=== PATIENT | female | born 1960 | race African-American/Black ===

== ENCOUNTER 2016-06-11 21:47 | Emergency (ER) | payer OTHER ==
[~2016-06-11] VITALS: Ht 165.1 cm; Wt 179.2 kg
[~2016-06-11 21:47] MED LIST: ACETAZOLAMIDE250 M1 PO; ASPIRIN EC325 MG PO; CEFUROXIME250 M1 PO; COLACE100 MG PO; COUMADIN 10 MG10 MG PO; COUMADIN 2.5 M2.5 MG PO; COUMADIN7.5 M1 PO; Diamox PO; ELIQUIS2.5 M1 PO; IRON325 M1 PO; LASIX40 M1 PO; LASIX40 MG PO; LOVENOX 10100 MG/1 M SC; MOTRIN 400MG (400 MG PO; PRILOSEC 20MG C20 MG PO; PROVENTIL0.09 MG/Ac INH; ROXICODONE5 MG PO; TYLENOL TAB 32325 MG PO
[2016-06-11 22:11] VITALS: BP 105/57
[2016-06-11 22:42] LABS: ABSOLUTE BASOPHIL COUNT 0 /CUMM (0.0-0.2); ABSOLUTE EOSINOPHIL COUNT 0 /CUMM (0.0-0.7); BASOPHIL % 0.1 % (0.0-2.0); HEMATOCRIT 36.6 % (37-47); MEAN CORPUSCULAR HGB 26.4 PG (27.0-31.0); RED BLOOD CELL CT 4.09 /CUMM (4.20-5.40); WHITE BLOOD CELL COUNT 9.4 /CUMM (4.8-10.8)
[2016-06-11 22:46] LABS: ABSOLUTE MONOCYTE COUNT 0.4 /CUMM (0.10-0.60); EOSINOPHIL % 0.1 % (0-5); GRANULOCYTE % 84.5 % (42.2-75.2); MEAN CORPUSCULAR HGB CONC 29.5 G/DL (33.0-37.0); MEAN CORPUSCULAR VOLUME 89.6 FL (81.0-99.0); MEAN PLATELET VOLUME 7.1 FL (7.4-10.4); PLATELET COUNT 250 /CUMM (130-400); RBC DISTRIBUTION WIDTH 32.9 % (11.5-14.5)
[2016-06-11 22:54] LABS: ABSOLUTE GRANULOCYTE CT 7.9 /CUMM (1.4-6.5)
--- NOTE | 2016-06-11 23:10 | ED GI/GU/ABDOMINAL COMPLAINT ---
History of Present Illness General Chief Complaint: Abdominal Pain/Flank Pain Stated Complaint: CHANELLE RUQ ABD PAIN, RADIATES TO BACK Source: patient Exam Limitations: no limitations Vital Signs & Intake/Output Vital Signs & Intake/Output Vital Signs Date Time Temp Pulse Resp B/P Pulse O2 O2 Flow FiO2 Ox Delivery Rate 06/11 2306 98 Room Air 06/11 2211 97.7 99 20 105/57 98 Room Air ED Intake and Output 06/12 0000 06/11 1200 Intake Total 1000 Output Total Balance 1000 Intake, IV 1000 Patient 395 lb Weight Allergies Coded Allergies: NO KNOWN ALLERGIES (12/10/13) Reconcile Medications Acetaminophen (Tylenol Tab 325 MG) 325 MG TAB 2 TAB PO Q4P PRN mild to moderate pain Acetazolamide 250 MG TABLET 1 TAB PO Wednesday Fluid Overload Please take this medication on Wednesday, Wednesday, Wednesday. Albuterol (Proventil) 0.09 MG/Actuation ESCOBAR 2 PUFF INH Q6 PRN WHEEZING Apixaban (Eliquis) 2.5 MG TABLET 1 TAB PO BID Venous Thromboembolism Docusate Sodium (Colace) 100 MG SGL 2 CAP PO DAILY CONSTIPATION Ergocalciferol (Vitamin D2) (Vitamin D2) 50,000 UNIT CAPSULE 1 CAP PO AD SUPPLEMENT (Reported) Ferrous Sulfate 325 MG TAB 1 TAB PO BID ANEMIA Furosemide (Lasix) 40 MG TABLET 1 TAB PO SAT SUN WATER RETENTION Please take this medication on Wednesday, , Wednesday and Wednesday. Triage Note: RECEIVED 55 YO FEMALE CHANELLE FROM [facility] FOR C/O RUQ ABDOMINAL PAIN RADIATING TO BACK X ONE HOUR, WITH N/V X 2, PT IS MORBIDLY OBESE WITH HX OF BILAT LOWER EXT. DVT'S. PT REPORTS MILD PAIN AT PRESENT. Triage Nurses Notes Reviewed? yes ? N Is pt currently ? No HPI: This patient is a 55-year-old female who presented to the emergency department today from [facility] for evaluation of abdominal pain 1 hour prior to arrival. The patient reported that she was sitting when she first noticed pain in her right upper abdomen that radiates to the back. She reported that he gets up to an 8 out of 10 and has been constant, although it has been getting better. She reported that she only feels like, "a little bit, " right now. However, the patient reported that the pain feels like pressure and she is now feeling pressure in both sides of her neck. She reported that she feels that she is having some anxiety. She reported vomiting 2 and associated nausea. She denied any fevers, chills, chest pain, palpitations, numbness or tingling in her extremities, arm pain, calf pain, hemoptysis, calf swelling. (MAGALY AGUILAR PA-C) Past History Travel History Traveled to [place] past 21 day No Medical History Any Pertinent Medical History? see below for history Neurological: NONE EENT: NONE Cardiovascular: CHF Respiratory: obstructive sleep apnea Gastrointestinal: NONE Hepatic: NONE Renal: NONE Musculoskeletal: NONE Psychiatric: NONE Endocrine: NONE Blood Disorders: DVT Cancer(s): NONE History of MRSA: No History of VRE: No History of CDIFF: No Pneumonia Vaccine: 02/28/05 Surgical History Surgical History: non-contributory Psychosocial History Who do you live with Daughter Services at Home None What is your primary language Czech Tobacco Use: Never used Family History Family History, If Any: FATHER (Parkinsonism). SISTER (ovarian cancer). MOTHER (hypertension). Hx Contributory? No (MAGALY AGUILAR PA-C) Review of Systems Review of Systems Constitutional: Reports: no symptoms. EENTM: Reports: no symptoms. Respiratory: Reports: see HPI. Cardiovascular: Reports: no symptoms. GI: Reports: see HPI. Genitourinary: Reports: no symptoms. Musculoskeletal: Reports: see HPI. Skin: Reports: no symptoms. Neurological/Psychological: Reports: no symptoms. All Other Systems: Reviewed and Negative (MAGALY AGUILAR PA-C) Physical Exam Physical Exam Gastrointestinal: HYPOACTIVE BOWEL SOUNDS, OBESE, SOFT, NONDISTENDED, NO ORGANOMEGALY. TENDERNESS TO PALPATION ACROSS THE UPPER ABDOMEN. NO REBOUND OR GUARDING. POSITIVE BURKETT'S SIGN. NO MCBURNY'S POINT TENDERNESS Comments: Well-developed well-nourished person in no acute distress HEENT: Normal EENT exam, moist mucous membranes Pupils equally round and reactive to light. Neck: Supple, no lymphadenopathy. No midline tenderness Back: Normal inspection Cardiovascular: Regular rate and rhythm with no murmurs, rubs or gallops. No carotid bruits. No JVD Respiratory: Chest nontender. No respiratory distress. Breath sounds clear to auscultation bilaterally Extremity: No edema, no calf tenderness to palpation, normal and equal pulses. Neuro: Alert oriented x3, cranial nerves II through XII grossly intact. Skin: No appreciable rash on exposed skin, skin is warm and dry. Psych: Mood and affect is normal Core Measures ACS in differential dx? Yes Severe Sepsis Present: No Septic Shock Present: No (LAUREN CASTELLANO,MAGALY) Progress Differential Diagnosis: AAA, AMI, appendicitis, biliary colic, bowel obstruction , colon cancer, cholecystitis, diverticulitis, ectopic , endometritis, gastritis, hepatitis, hernia, ischemic bowel, inflamm bowel dis, intrauterine , kidney stone, pancreatitis, PID/cervicitis, PUD/GERD, perforated viscous, SBO, UTI/pyelo Plan of Care: Orders Procedure Date/time Status LACTIC ACID 06/12 0115 Active Add-on Test (ER Only) 06/11 2317 Active EKG 06/11 2317 Active Add-on Test (ER Only) 06/11 2314 Active TROPONIN LEVEL 06/11 2229 Active MAGNESIUM 06/11 2229 Active BLOOD CULTURE 06/11 2214 Active URINALYSIS 06/11 2214 Active LIPID PANEL 06/115 Active LIPASE 06/11 2214 Active LACTIC ACID 06/11 2214 Active HEPATITIS PANEL 06/11 2214 Active DIRECT BILIRUBIN 06/11 2214 Active COMPREHENSIVE METABOLIC PANEL 06/11 2214 Active CBC WITHOUT DIFFERENTIAL 06/11 2214 Complete AMYLASE 06/11 2214 Active Laboratory Tests 06/11/16 2230: Anion Gap 14, Estimated GFR > 60, BUN/Creatinine Ratio 16.3, Glucose 127 H, Lactic Acid 1.9, Calcium 8.2 L, Magnesium 1.9, Total Bilirubin 0.5, Direct Bilirubin 0.4, AST 13 L, ALT 16, Alkaline Phosphatase 71, Troponin I < 0.01, Total Protein 7.6, Albumin 3.3 L, Globulin 4.3 H, Albumin/Globulin Ratio 0.8 L, Triglycerides 70, Cholesterol 122, LDL Cholesterol, Calc 83, HDL Cholesterol 25 L, Cholesterol/HDL Ratio 5 H, Amylase < 30 L, Lipase 42, CBC w Diff NO MAN DIFF REQ, RBC 4.09 L, MCV 89.6, MCH 26.4 L, RDW 32.9 H, MPV 7.1 L, Gran % 84.5 H, Lymphocytes % 10.7 L, Monocytes % 4.6, Eosinophils % 0.1, Basophils % 0.1, Absolute Granulocytes 7.9 H, Absolute Lymphocytes 1.0 L, Absolute Monocytes 0.4, Absolute Eosinophils 0, Absolute Basophils 0, PUBS MCHC 29.5 L, Hepatitis A IgM Ab Pending, Hep Bs Antigen Pending, Hep B Core IgM Ab Conf Pending, Hepatitis C Antibody Pending Microbiology 06/11 2316 BLOOD: Blood Culture - RECD 06/11 2229 BLOOD: Blood Culture - RECD Diagnostic Imaging: Viewed by Me: CT Scan. Discussed w/RAD: CT Scan. Radiology Impression: PATIENT: REJI ALFARO PRESENT AGE: 55 PATIENT ACCOUNT NO: [id number] : 59 LOCATION: [facility] ORDERING PHYSICIAN: MAGALY AGUILAR PA-C SERVICE DATE: 06/11/16 EXAM TYPE: CAT - CT ABD & PELVIS W IV CONTRAST EXAMINATION: CT ABDOMEN AND PELVIS WITH CONTRAST CLINICAL INFORMATION: Abdominal pain with nausea and vomiting. COMPARISON: None. TECHNIQUE: Multidetector volumetric imaging was performed of the abdomen and pelvis before and after the IV administration of 95 mL of Optiray 320 intravenous contrast. Sagittal and coronal reformatted images were obtained on the technologist's workstation. DLP: 1575 mGy-cm. FINDINGS: LUNG BASES: The visualized lung bases are unremarkable. LIVER, GALLBLADDER, AND BILIARY TREE: The liver is normal in attenuation. The liver is enlarged, measuring 21 cm in CC dimension. No focal hepatic lesion or biliary ductal dilatation is present. The gallbladder is unremarkable with no evidence of radiopaque gallstones, gallbladder wall thickening, or obvious pericholecystic inflammatory changes. PANCREAS: Unremarkable. SPLEEN: Unremarkable. ADRENAL GLANDS: Unremarkable. KIDNEYS AND URETERS: The kidneys are normal in size, shape, and attenuation. No hydronephrosis, hydroureter, or calculi seen. No perinephric stranding. BLADDER: The bladder is partially distended without definite wall thickening, although the pelvic collection abuts the superior left aspect of the bladder with loss of the fat plane. GASTROINTESTINAL TRACT: Small hiatal hernia. The stomach is otherwise unremarkable. No dilated loops of bowel or evidence of obstruction. Normal appendix. There is colonic diverticulosis. There is no evidence of acute wall thickening. There is a contained collection adjacent to the sigmoid colon with internal foci of gas and fluid. This collection measures 5.6 x 4.7 x 3.8 cm. Minimal inflammatory changes noted. This constellation of findings is consistent with a contained perforation from diverticulitis. ABDOMINAL WALL: No significant hernia is appreciated. LYMPH NODES: No pathologically enlarged lymph nodes. Multiple small retroperitoneal lymph nodes are present. VASCULAR: An IVC filter is noted at the level of the renal veins. Scattered atherosclerotic calcifications. Small varices are noted within the left abdomen. PELVIC VISCERA: The uterus is unremarkable. No adnexal mass. Of note, the pelvic collection is seen in the region of the left adnexa likely abutting the left ovary. OSSEOUS STRUCTURES: No acute or suspicious osseous abnormality. Multilevel degenerative changes of the spine. Severe degenerative changes of the right hip with loss of the joint space, subchondral sclerosis and cyst formation, and osteophyte formation. IMPRESSION: Colonic diverticulosis with an adjacent fluid collection in the pelvis with internal foci of gas. While there is no significant colonic wall thickening. Slight inflammation is also seen in the region and this therefore suggests a contained perforation associated with diverticulitis. Hepatomegaly. Severe degenerative changes of the right hip. This critical result was discussed with MAGALY AGUILAR MD by telephone at 06/11/2016 11:54 PM and it was ascertained that the content and urgency of the report was understood at the time of direct communication. DICTATED BY: OVIDIO SMILEY,KURT DATE/TIME DICTATED:06/11/162347 SLAUGHTERER RELIGIOUS RITUAL:ENMA DATE/TIME TRANSCRIBED:2347 CONFIDENTIAL, DO NOT COPY WITHOUT APPROPRIATE AUTHORIZATION. < Electronically signed in Other Vendor System> SIGNED BY: OVIDIO SMILEY, KURT 06/12/16 0004 Initial ED EKG: normal axis, nonspecific ST T wave chg, sinus arrythmia, 110 bpm Comments: 06/11/2016 11:58:19 PM: [facility] called to tell me that she has a contained collection in her pelvis. She has diverticulosis with a mild diverticulitis with a contained perforation. Speculate that this happened a while ago and may be improving but is not entirely sure. 06/12/2016 12:24:15 PM: I spoke to Dr. Jj, on-call general surgeon. The surgical PA will be down to evaluate this patient [id number]. 06/12/2016 12:48:39 PM: Dr. Jj feels that this patient can be safely discharged back to the extended care facility with no antibiotics. Suspecting that this is likely an old collection that is resolving. This patient has no abnormalities to her LFTs. White blood cell count is not elevated. Gallbladder is unremarkable and CT scan. They are recommending however that this patient has an outpatient ultrasound of her gallbladder. She is stable for discharge home at this time. Discussed the plan with who is in agreement. (MAGALY AGUILAR PA-C) Departure Departure Disposition: HOME OR SELF CARE Condition: Stable Clinical Impression Primary Impression: Abdominal pain Qualifiers: Abdominal location: right upper quadrant Qualified Code: R10.11 - Right upper quadrant pain Referrals: CANDICE SMILEY,PEGGY Farley (PCP/Family) Additional Instructions: Continue to take all previously prescribed medications as directed. Please get an out patient right upper quadrant ultrasound of your gallbladder. Return for any worsening symptoms or concerns. Departure Forms: Customer Survey General Discharge Information (MAGALY AGUILAR PA-C) PA/BOAT WRAPPER Co-Sign Statement Statement: ED Attending supervision documentation- x I saw and evaluated the patient. I have also reviewed all the pertinent lab results and diagnostic results. I agree with the findings and the plan of care as documented in the PA's/BOAT WRAPPER's documentation. [] I have reviewed the ED Record and agree with the PA's/BOAT WRAPPER's documentation. [] Additions or exceptions (if any) to the PAs/BOAT WRAPPER's note and plan are summarized below: [] (JENNIFER SMILEY,SEBAS)
--- NOTE | 2016-06-12 00:04 | CT SCAN REPORT ---
EXAMINATION: CT ABDOMEN AND PELVIS WITH CONTRAST CLINICAL INFORMATION: Abdominal pain with nausea and vomiting. COMPARISON: None. TECHNIQUE: Multidetector volumetric imaging was performed of the abdomen and pelvis before and after the IV administration of 95 mL of Optiray 320 intravenous contrast. Sagittal and coronal reformatted images were obtained on the technologist's workstation. DLP: 1575 mGy-cm. FINDINGS: LUNG BASES: The visualized lung bases are unremarkable. LIVER, GALLBLADDER, AND BILIARY TREE: The liver is normal in attenuation. The liver is enlarged, measuring 21 cm in CC dimension. No focal hepatic lesion or biliary ductal dilatation is present. The gallbladder is unremarkable with no evidence of radiopaque gallstones, gallbladder wall thickening, or obvious pericholecystic inflammatory changes. PANCREAS: Unremarkable. SPLEEN: Unremarkable. ADRENAL GLANDS: Unremarkable. KIDNEYS AND URETERS: The kidneys are normal in size, shape, and attenuation. No hydronephrosis, hydroureter, or calculi seen. No perinephric stranding. BLADDER: The bladder is partially distended without definite wall thickening, although the pelvic collection abuts the superior left aspect of the bladder with loss of the fat plane. GASTROINTESTINAL TRACT: Small hiatal hernia. The stomach is otherwise unremarkable. No dilated loops of bowel or evidence of obstruction. Normal appendix. There is colonic diverticulosis. There is no evidence of acute wall thickening. There is a contained collection adjacent to the sigmoid colon with internal foci of gas and fluid. This collection measures 5.6 x 4.7 x 3.8 cm. Minimal inflammatory changes noted. This constellation of findings is consistent with a contained perforation from diverticulitis. ABDOMINAL WALL: No significant hernia is appreciated. LYMPH NODES: No pathologically enlarged lymph nodes. Multiple small retroperitoneal lymph nodes are present. VASCULAR: An IVC filter is noted at the level of the renal veins. Scattered atherosclerotic calcifications. Small varices are noted within the left abdomen. PELVIC VISCERA: The uterus is unremarkable. No adnexal mass. Of note, the pelvic collection is seen in the region of the left adnexa likely abutting the left ovary. OSSEOUS STRUCTURES: No acute or suspicious osseous abnormality. Multilevel degenerative changes of the spine. Severe degenerative changes of the right hip with loss of the joint space, subchondral sclerosis and cyst formation, and osteophyte formation. IMPRESSION: Colonic diverticulosis with an adjacent fluid collection in the pelvis with internal foci of gas. While there is no significant colonic wall thickening. Slight inflammation is also seen in the region and this therefore suggests a contained perforation associated with diverticulitis. Hepatomegaly. Severe degenerative changes of the right hip. This critical result was discussed with MAGALY AGUILAR MD by telephone at 06/11/2016 11:54 PM and it was ascertained that the content and urgency of the report was understood at the time of direct communication.
--- NOTE | 2016-06-12 01:03 | Cons- General Surgery ---
General Information and HPI Consulting Request Date of Consult: 06/12/16 Requested By: Emergency department staff Reason for Consult: Abdominal pain Source of Information: patient Exam Limitations: no limitations History of Present Illness: This is a 55-year-old female was sent to the emergency department from an extended living facility for complaints of abdominal pain with associated nausea and vomiting. The patient was seen she reports feeling fine and in her usual state of health throughout the day. Shortly after dinner she developed epigastric abdominal pain which is sharp and crampy in nature and radiating to her right upper quadrant and back with associated nausea/vomiting 2-3 episodes which appears to be what she had had for dinner. The patient denies having similar pain in the past and had no other complaints the current time. She reports having a normal bowel movement earlier this evening and denies any fever /chills, dysuria, or other complaints. Allergies/Medications Allergies: Coded Allergies: NO KNOWN ALLERGIES (12/10/13) Home Med List: Acetaminophen (Tylenol Tab 325 MG) 325 MG TAB 2 TAB PO Q4P PRN mild to moderate pain Acetazolamide 250 MG TABLET 1 TAB PO Wednesday Fluid Overload Please take this medication on Wednesday, Wednesday, Wednesday. Albuterol (Proventil) 0.09 MG/Actuation ESCOBAR 2 PUFF INH Q6 PRN WHEEZING Apixaban (Eliquis) 2.5 MG TABLET 1 TAB PO BID Venous Thromboembolism Cefuroxime Axetil (Cefuroxime) 250 MG TABLET 1 TAB PO BID Pneumonia Docusate Sodium (Colace) 100 MG SGL 2 CAP PO DAILY CONSTIPATION Ferrous Sulfate 325 MG TAB 1 TAB PO BID ANEMIA Furosemide (Lasix) 40 MG TABLET 1 TAB PO Wed SUN WATER RETENTION Please take this medication on Wednesday, , Wednesday and Wednesday. Omeprazole (Prilosec) 20 MG CAP 2 TAB PO BID GI HEALTH Past History Medical History Neurological: NONE EENT: NONE Cardiovascular: CHF Respiratory: obstructive sleep apnea Gastrointestinal: NONE Hepatic: NONE Renal: NONE Musculoskeletal: NONE Psychiatric: NONE Endocrine: NONE Blood Disorders: DVT Cancer(s): NONE Other Medical Hx: Morbid obesity Surgical History Pertinent Surgical History: non-contributory Family History Relations & Conditions If Any: FATHER (Parkinsonism). SISTER (ovarian cancer). MOTHER (hypertension). Psychosocial History Where Do You Live? Assisted Living Who Do You Live With? other assisted living residence Services at Home: full service Primary Language: Hong Konger Smoking Status: Never Smoked ETOH Use: denies use Functional Ability ADLs Independent: dressing, eating, toileting, bathing. Ambulation: cane IADLs Independent: finances, food prep, telephone, medication admin. Needs Assist: shopping, housework, transportation. Review of Systems Review of Systems Cardiovascular: Denies: chest pain, palpitations. Respiratory: Denies: cough, short of breath. GI: Denies: diarrhea, changes in stool. Genitourinary: Denies: dysuria. Exam & Diagnostic Data Vital Signs and I&O Vital Signs Date Time Temp Pulse Resp B/P Pulse O2 O2 Flow FiO2 Ox Delivery Rate 06/11 2306 98 Room Air 06/11 221 97.7 99 20 105/57 98 Room Air Intake & Output 06/12 0800 06/12 0000 06/11 1600 06/11 0800 06/11 0000 06/10 1600 Intake Total 1000 Output Total Balance 1000 Intake, IV 1000 Patient 395 lb Weight Laboratory Tests 06/110 Chemistry Sodium (137 - 145 mmol/L) 141 Potassium (3.5 - 5.1 mmol/L) 4.2 Chloride (98 - 107 mmol/L) 97 L Carbon Dioxide (22 - 30 mmol/L) 30 Anion Gap (5 - 16) 14 BUN (7 - 17 mg/dL) 13 Creatinine (0.5 - 1.0 mg/dL) 0.8 Estimated GFR (>60 ml/min) > 60 BUN/Creatinine Ratio (7 - 25 %) 16.3 Glucose (65 - 99 mg/dL) 127 H Lactic Acid (0.7 - 2.1 mmol/L) 1.9 Calcium (8.4 - 10.2 mg/dL) 8.2 L Magnesium (1.6 - 2.3 mg/dL) 1.9 Total Bilirubin (0.2 - 1.3 mg/dL) 0.5 Direct Bilirubin (< 0.4 mg/dL) 0.4 AST (14 - 36 U/L) 13 L ALT (9 - 52 U/L) 16 Alkaline Phosphatase (<127 U/L) 71 Troponin I (< 0.11 ng/ml) < 0.01 Total Protein (6.3 - 8.2 g/dL) 7.6 Albumin (3.5 - 5.0 g/dL) 3.3 L Globulin (1.9 - 4.2 gm/dL) 4.3 H Albumin/Globulin Ratio (1.1 - 2.2 %) 0.8 L Triglycerides (<150 mg/dL) 70 Cholesterol (<200 MG/DL) 122 LDL Cholesterol, Calc (65 - 129 mg/dL) 83 HDL Cholesterol (40 - 60 mg/dL) 25 L Cholesterol/HDL Ratio (0.00 - 4.23 %) 5 H Amylase (30 - 110 U/L) < 30 L Lipase (23 - 300 U/L) 42 Hematology CBC w Diff NO MAN DIFF REQ WBC (4.8 - 10.8 /CUMM) 9.4 RBC (4.20 - 5.40 /CUMM) 4.09 L Hgb (12.0 - 16.0 G/DL) 10.8 L Hct (37 - 47 %) 36.6 L MCV (81.0 - 99.0 FL) 89.6 MCH (27.0 - 31.0 PG) 26.4 L RDW (11.5 - 14.5 %) 32.9 H Plt Count (130 - 400 /CUMM) 250 MPV (7.4 - 10.4 FL) 7.1 L Gran % (42.2 - 75.2 %) 84.5 H Lymphocytes % (20.5 - 51.1 %) 10.7 L Monocytes % (1.7 - 9.3 %) 4.6 Eosinophils % (0 - 5 %) 0.1 Basophils % (0.0 - 2.0 %) 0.1 Absolute Granulocytes (1.4 - 6.5 /CUMM) 7.9 H Absolute Lymphocytes (1.2 - 3.4 /CUMM) 1.0 L Absolute Monocytes (0.10 - 0.60 /CUMM) 0.4 Absolute Eosinophils (0.0 - 0.7 /CUMM) 0 Absolute Basophils (0.0 - 0.2 /CUMM) 0 PUBS MCHC (33.0 - 37.0 G/DL) 29.5 L Serology Hepatitis A IgM Ab (NONREACTIVE) Pending Hep Bs Antigen (NONREACTIVE) Pending Hep B Core IgM Ab Conf (NONREACTIVE) Pending Hepatitis C Antibody (NONREACTIVE) Pending CAT scan of the abdomen pelvis read as small focus of air with minimal inflammatory changes around the sigmoid colon suggestive of contained perforated diverticulitis Physical Exam: Gen.: Alert in obvious distress Skin: Warm and dry HEENT: Pupils are equal round reactive to light and accommodation neck was supple with no lymphadenopathy head was atraumatic and normocephalic Chest: Nontender with equal expansion Cardiac: S1-S2 regular Pulmonary: Bilateral breath sounds were equal and decreased at bases Abdomen: Soft, obese, mild right upper quadrant and epigastric tenderness without rebound or guarding, sounds positive. No masses or hernias were appreciated Extremities: Bilateral looks O's are warm without calf tenderness there was trace pitting edema. Assessment/Plan Assessment/Plan Assessments: 55-year-old female with a few hour history of abdominal pain and exam that is more suggestive of biliary colic. CAT scan abdomen and pelvis was read as a contained perforated diverticulitis with no significant inflammation. The patient's LFTs and white count were normal her exam was not consistent with diverticulitis. The case is discussed with Nicko Jj MD. Recommendations: There is no acute surgical via the current time the patient should be set up with outpatient ultrasounds to rule out biliary disease. After the ultrasound patient to follow-up in the office as needed thank you for consultation. Problem List: 1. Abdominal pain Consult Acknowledgment - Thank you for your consult request.
[2016-06-12] MEDS ORDERED: VITAMIN D250000 UNIT PO (14:29)
== END 2016-06-12 02:10 ==
LOC: ERH 21:47
PROVIDERS: Physician Assistant
DX: R10.11 Right upper quadrant pain (principal); R11.2 Nausea with vomiting, unspecified
CPT/HCPCS: 74177; 87040; 93005; 93010; 96374; J2405

== ENCOUNTER 2016-06-12 14:08 | Inpatient (IN) | payer OTHER ==
[~2016-06-12] VITALS: Ht 167.6 cm; Wt 178.7 kg
[2016-06-12] MEDS ORDERED: VITAMIN D250000 UNIT PO (14:29)
[2016-06-12 15:04] LABS: ABSOLUTE BASOPHIL COUNT 0 /CUMM (0.0-0.2); ABSOLUTE EOSINOPHIL COUNT 0 /CUMM (0.0-0.7); ABSOLUTE LYMPH COUNT 1.3 /CUMM (1.2-3.4); MEAN CORPUSCULAR HGB CONC 29.2 G/DL (33.0-37.0)
[2016-06-12 15:06] LABS: ABSOLUTE GRANULOCYTE CT 5.8 /CUMM (1.4-6.5); ABSOLUTE MONOCYTE COUNT 0.4 /CUMM (0.10-0.60); BASOPHIL % 0.2 % (0.0-2.0); EOSINOPHIL % 0.1 % (0-5); GRANULOCYTE % 77.6 % (42.2-75.2); MEAN CORPUSCULAR HGB 26.5 PG (27.0-31.0); MEAN CORPUSCULAR VOLUME 90.9 FL (81.0-99.0); MEAN PLATELET VOLUME 7.5 FL (7.4-10.4); PLATELET COUNT 230 /CUMM (130-400); RBC DISTRIBUTION WIDTH 33.6 % (11.5-14.5); WHITE BLOOD CELL COUNT 7.5 /CUMM (4.8-10.8)
--- NOTE | 2016-06-12 15:08 | ED GI/GU/ABDOMINAL COMPLAINT ---
History of Present Illness General Chief Complaint: Abdominal Pain/Flank Pain Stated Complaint: BIBA FOR ABD. PAIN,+CT SCAN FOR PERFORATION Source: patient, old records, EMS Exam Limitations: no limitations Vital Signs & Intake/Output Vital Signs & Intake/Output Vital Signs Date Time Temp Pulse Resp B/P Pulse O2 O2 Flow FiO2 Ox Delivery Rate 06/12 2046 97.5 78 18 107/59 97 Nasal 3.0L Cannula 06/12 1755 97.0 82 18 109/64 96 Nasal 3.0L Cannula 06/12 1511 94 Nasal 3.0L Cannula 06/12 1425 97.4 86 18 102/54 94 Nasal 3.0L Cannula ED Intake and Output 06/13 0000 06/12 1200 Intake Total Output Total Balance Patient 325 lb Weight Allergies Coded Allergies: NO KNOWN ALLERGIES (12/10/13) Reconcile Medications Acetaminophen (Tylenol Tab 325 MG) 325 MG TAB 2 TAB PO Q4P PRN mild to moderate pain Acetazolamide 250 MG TABLET 1 TAB PO Wednesday Fluid Overload Please take this medication on Wednesday, Wednesday, Wednesday. Albuterol (Proventil) 0.09 MG/Actuation ESCOBAR 2 PUFF INH Q6 PRN WHEEZING Apixaban (Eliquis) 2.5 MG TABLET 1 TAB PO BID Venous Thromboembolism Docusate Sodium (Colace) 100 MG SGL 2 CAP PO DAILY CONSTIPATION Ergocalciferol (Vitamin D2) (Vitamin D2) 50,000 UNIT CAPSULE 1 CAP PO AD SUPPLEMENT (Reported) Ferrous Sulfate 325 MG TAB 1 TAB PO BID ANEMIA Furosemide (Lasix) 40 MG TABLET 1 TAB PO Wed SUN WATER RETENTION Please take this medication on Wednesday, , Wednesday and Wednesday. Triage Note: PT BIBA FROM REHAB FACILITY. PT WAS D/C'ED FROM HERE EARLIER TODAY, WITH NOTHING FOUND TO BE WRONG. PT STATES SHE WENT BACK TO FACILITY, WAS DC'ED ON CLEAR LIQUIDS, DENIED BREAKFAST BUT DRANK SOME ORANGE JUICE THEN PROCEEDED TO VOMIT AND FACILITY CALLED AMBULANCE. PT DENIES ANY PAIN, DOES NOT FEEL NAUSEOUS AT THIS TIME. PT WEARED 2L NC AT HOME, PT SATTING 88% ON 2L, INCREASED TO 94 ON 3L. PT C/O OF SLIGHT SHORTNESS OF BREATH, LUNG SOUNDS ARE CLEAR. AFEBRILE, AAOX3. Triage Nurses Notes Reviewed? yes ? N Is pt currently ? No Onset: Abrupt Duration: day(s):, constant, continues in ED Timing: recent history Quality/Severity: moderate, sharpness, severe Location: right lower quadrant Radiation: no radiation Activities at Onset: none Prior Abdominal Problems: none No Modifying Factors: none HPI: 55-year-old female comes into emergency room with complaints of abdominal pain. Patient was seen yesterday. Patient was sent back home. Denies any fever chills vomiting. Sharp pain. Intermittent. Pain is located in the right side of the abdomen. Denies any other associated symptoms. Denies any changes in bowel movement. (MATEUS PALOMARES) Past History Travel History Traveled to [place] past 21 day No Medical History Any Pertinent Medical History? see below for history Neurological: NONE EENT: NONE Cardiovascular: CHF Respiratory: obstructive sleep apnea Gastrointestinal: NONE Hepatic: NONE Renal: NONE Musculoskeletal: MORBIDLY OBESE Psychiatric: NONE Endocrine: NONE Blood Disorders: DVT Cancer(s): NONE Other Medical Hx: Morbid obesity History of MRSA: No History of VRE: No History of CDIFF: No Pneumonia Vaccine: 02/28/05 Surgical History Surgical History: non-contributory Psychosocial History Who do you live with Daughter Services at Home full service What is your primary language Guatemalan Tobacco Use: Current Not Daily Family History Family History, If Any: FATHER (Parkinsonism). SISTER (ovarian cancer). MOTHER (hypertension). Hx Contributory? No (MATEUS PALOMARES) Review of Systems Review of Systems Constitutional: Reports: no symptoms. EENTM: Reports: no symptoms. Respiratory: Reports: no symptoms. Cardiovascular: Reports: no symptoms. GI: Reports: see HPI. Genitourinary: Reports: no symptoms. Musculoskeletal: Reports: no symptoms. Skin: Reports: no symptoms. Neurological/Psychological: Reports: no symptoms. Hematologic/Endocrine: Reports: no symptoms. Immunologic/Allergic: Reports: no symptoms. All Other Systems: Reviewed and Negative (MATEUS PALOMARES) Physical Exam Physical Exam General Appearance: well developed/nourished, no apparent distress, alert, awake Head: atraumatic, normal appearance Eyes: Bilateral: normal appearance. Ears, Nose, Throat, Mouth: hearing grossly normal, moist mucous membrane Neck: normal inspection Respiratory: normal breath sounds, no respiratory distress Cardiovascular: regular rate/rhythm Gastrointestinal: soft, tenderness (MILD RIGHT SIDE OF ABDOMEN) Back: normal inspection Extremities: normal range of motion Neurologic/Psych: awake, alert, oriented x 3, normal gait, normal mood/affect Skin: intact, normal color Core Measures ACS in differential dx? No Severe Sepsis Present: No Septic Shock Present: No (MATEUS PALOMARES) Progress Differential Diagnosis: appendicitis, biliary colic, bowel obstruction Plan of Care: Orders Procedure Date/time Status Heart Healthy Diet 06/13 B Active PT Evaluate & Treat 06/13 0600 Active MAGNESIUM 06/13 0600 Active BASIC ELECTROLYTES PLUS BUN&CR 06/13 0600 Active Patient Data 06/13 0053 Active POTASSIUM-PLASMA 06/13 0000 Active Lab Add-on Test 06/13 UNK Active URINE LYTES, SPOT 06/12 2337 Active URINALYSIS 06/12 2337 Active Lab Misc 06/12 2329 Active Saline Lock 06/12 2324 Active Pathway - chart 06/12 2324 Active House Staff 06/12 2324 Active Patient Data 06/12 2318 Active EKG 06/12 2310 Active Saline Lock 06/12 2259 Active Misc Message 06/12 2259 Active ED Holding Orders 06/12 2259 Active Vital Signs 06/12 2259 Active Code Status 06/12 2259 Active Admit to inpatient 06/12 2258 Active LIPASE 06/12 1522 Active AMYLASE 06/12 1522 Active Intake & Output 06/12 1513 Active PARTIAL THROMBOPLASTIN TIME 06/12 1416 Complete PROTHROMBIN TIME 06/12 1416 Complete LACTIC ACID 06/12 1416 Active COMPREHENSIVE METABOLIC PANEL 06/12 1416 Active CBC WITHOUT DIFFERENTIAL 06/12 1416 Complete TRC EVALUATION (GEN) 06/12 UNK Active Nursing Misc 06/12 UNK Active Current Medications Sig/Arvind Start time Last Medication Dose Stop Time Status Admin Polyethylene Glycol 17 GM AT BEDTIME 06/13 2200 AC (Miralax) Senna/Docusate Sodium 1 TAB AT BEDTIME 06/13 2200 AC (Senokot S) Apixaban 2.5 MG BID 06/13 1000 AC (Eliquis) Albuterol Sulfate 3 ML Q6P PRN 06/12 2345 AC (Proventil) Acetaminophen 650 MG Q6P PRN 06/12 2330 AC (Tylenol) Acetaminophen/ 1 TAB Q6P PRN 06/12 2330 AC Hydrocodone Bitart (Vicodin) Diphenhydramine HCl 25 MG Q6P PRN 06/12 2330 AC (Benadryl) Hydromorphone HCl 0.5 MG Q4P PRN 06/12 2330 AC (Dilaudid) Laboratory Tests 06/12/16 1716: Lactic Acid Cancelled 06/12/16 1522: Anion Gap 11, Estimated GFR 36 L, BUN/Creatinine Ratio 12.0, Glucose 102 H, Lactic Acid 1.0, Calcium 8.4, Total Bilirubin 0.6, AST 27, ALT 35, Alkaline Phosphatase 77, Total Protein 7.8, Albumin 3.5, Globulin 4.3 H, Albumin/ Globulin Ratio 0.8 L, Amylase Pending, Lipase Pending, PT 15.4 H, INR 1.47 H, APTT 32 06/12/16 1457: CBC w Diff MAN DIFF ORDERED, RBC 4.30, MCV 90.9, MCH 26.5 L, RDW 33.6 H, MPV 7.5, Gran % 77.6 H, Lymphocytes % 17.4 L, Monocytes % 4.7, Eosinophils % 0.1, Basophils % 0.2, Absolute Granulocytes 5.8, Segmented Neutrophils 67, Absolute Lymphocytes 1.3, Lymphocytes 19 L, Monocytes 12 H, Absolute Monocytes 0.4, Eosinophils 1, Absolute Eosinophils 0, Absolute Basophils 0, Myelocytes 1 H, Nucleated RBCs 5 H, Platelet Estimate ADEQUATE, Polychromasia 2+, Hypochromic- Microcytic 2+, Poikilocytosis 2+, Anisocytosis 2+, Microcytic Cells 1+, Macrocytic Cells 1+, PUBS MCHC 29.2 L Diagnostic Imaging: Viewed by Me: Ultrasound. Discussed w/RAD: Ultrasound. Radiology Impression: SERVICE DATE: 06/12/16-1605 EXAM TYPE: US - US-LIMITED ABDOMEN EXAMINATION: US ABDOMEN LIMITED CLINICAL INFORMATION: Right upper quadrant pain. COMPARISON: CT of abdomen-pelvis, 06/11/2015 TECHNIQUE: Real-time imaging of the right upper quadrant abdominal viscera. FINDINGS: PANCREAS: The majority of the pancreatic body and tail are obscured by bowel gas. The visualized portions of the pancreas have normal echotexture and there is no pancreatic ductal dilatation. LIVER: There is hepatomegaly with right hepatic lobe measuring 22 cm in craniocaudal dimension. The liver parenchymal echotexture is normal. No evidence of focal hepatic lesion or intrahepatic bile duct dilatation. GALLBLADDER: Gallbladder is physiologically distended and contains multiple small calculi. The gallbladder wall is thickened (measures up to 7-8 mm thick), and this is most conspicuous at its interface with the liver. Trace amount of pericholecystic fluid is seen. There is no Mejia's sign. COMMON BILE DUCT: Normal in caliber measuring 0.5 cm in diameter. RIGHT KIDNEY: Normal. No hydronephrosis. No renal calculi or focal parenchymal lesions. The kidney measures 10.9 cm in maximum dimension. FREE FLUID: No free fluid within Morison' s pouch. OTHER: Patient has an obese body habitus. IMPRESSION: 1. Cholelithiasis , gallbladder wall edema and trace pericholecystic fluid. These findings suggest possibility of acute cholecystitis. However, there is no Mejia's sign to confirm presence of acute cholecystitis. 2. Hepatomegaly in this obese patient. DICTATED BY: MARGARETTE IBANEZ MD DATE/TIME DICTATED:06/12/161712 DIRECTOR LABOR STANDARDS:ENMA DATE/TIME TRANSCRIBED:06/12/161712 CONFIDENTIAL, DO NOT COPY WITHOUT APPROPRIATE AUTHORIZATION. Initial ED EKG: none Comments: 06/12/2016 6:32:27 PM Waiting on surgery to call back. 06/12/2016 9:50:56 PM Surgery is currently in the OR. Waiting for them to leave the OR. They will evaluate the patient afterwards. 06/12/[address] Mann. Patient is pending a surgery evaluation. Patient has ultrasound consistent with cholecystitis. Patient is nontoxic- appearing otherwise. No acute abdomen on exam. (JULITA MERCADO,MATEUS) Departure Departure Disposition: STILL A PATIENT Condition: Stable Clinical Impression Primary Impression: Acute kidney injury Secondary Impressions: Cholecystitis, Hyperkalemia Referrals: CANDICE SMILEY,PEGGY Farley (PCP/Family) Departure Forms: Customer Survey General Discharge Information Admission Note Spoke With: SOCORRO DOVER MD Documentation of Exam: Documentation of any treatments & extenuating circumstances including Concerns Regarding Discharge (functional status, medication knowledge or non-compliance, living conditions, etc.) that warrant an admission rather than observation: Patient will require gentle hydration. Potassium correction. Surgical consultation. Serial abdominal exams. Repeat blood work. Consider other diagnostic imaging such as HIDA scan. Patient may require surgery of her symptoms worsen. Patient was seen by Dr. bruce. Patient will need medical clearance as well. (JULITA MERCADO,MATEUS) PA/RIGGER Co-Sign Statement Statement: ED Attending supervision documentation- [] I saw and evaluated the patient. I have also reviewed all the pertinent lab results and diagnostic results. I agree with the findings and the plan of care as documented in the PA's/RIGGER's documentation. [x] I have reviewed the ED Record and agree with the PA's/RIGGER's documentation. [] Additions or exceptions (if any) to the PAs/RIGGER's note and plan are summarized below: [] (DANII SMILEY,JANELLE Lucero)
[2016-06-12 15:40] LABS: PT 15.4 SEC (9.4-12.5); PTT 32 SEC (25-37)
--- NOTE | 2016-06-12 17:25 | ULTRASOUND REPORT ---
EXAMINATION: US ABDOMEN LIMITED CLINICAL INFORMATION: Right upper quadrant pain. COMPARISON: CT of abdomen-pelvis, 06/11/2015 TECHNIQUE: Real-time imaging of the right upper quadrant abdominal viscera. FINDINGS: PANCREAS: The majority of the pancreatic body and tail are obscured by bowel gas. The visualized portions of the pancreas have normal echotexture and there is no pancreatic ductal dilatation. LIVER: There is hepatomegaly with right hepatic lobe measuring 22 cm in craniocaudal dimension. The liver parenchymal echotexture is normal. No evidence of focal hepatic lesion or intrahepatic bile duct dilatation. GALLBLADDER: Gallbladder is physiologically distended and contains multiple small calculi. The gallbladder wall is thickened (measures up to 7-8 mm thick), and this is most conspicuous at its interface with the liver. Trace amount of pericholecystic fluid is seen. There is no Mejia's sign. COMMON BILE DUCT: Normal in caliber measuring 0.5 cm in diameter. RIGHT KIDNEY: Normal. No hydronephrosis. No renal calculi or focal parenchymal lesions. The kidney measures 10.9 cm in maximum dimension. FREE FLUID: No free fluid within Morison's pouch. OTHER: Patient has an obese body habitus. IMPRESSION: 1. Cholelithiasis, gallbladder wall edema and trace pericholecystic fluid. These findings suggest possibility of acute cholecystitis. However, there is no Mejia's sign to confirm presence of acute cholecystitis. 2. Hepatomegaly in this obese patient.
--- NOTE | 2016-06-13 00:02 | History & Physical ---
JOSE DAVID SMILEY,VALENC[place] 06/13/16 0001: General Information and HPI MD Statement: I have seen and personally examined REJI ALFARO and documented this H&P. The patient is a 55 year old F who presented with a patient stated chief complaint of abdominal pain. Source of Information: patient Exam Limitations: no limitations History of Present Illness: A 55-year-old female with a past medical history of CHF, XIANG on nocturnal CPAP, DVT is post IVC placement, and a recent admission in April for exacerbation of CHF and community acquired pneumonia presents from [facility] with chief complaint of abdominal pain. Pt states that her abdominal pain has an onset of months ago and is progressively worsening. Patient describes abdominal pain as cramping like located in the epigastric area and radiating towards her right upper quadrant area and her back, rated 5/10 and not affected by food intake. Patient does endorse an episode of nausea and vomiting today which she describes as greenish substance with no blood in it. Of note, patient was seen yesterday for the same complaint of abdominal pain and episode of vomiting. CT obtained was suggestive of some colonic perforation with diverticulitis, she was seen by surgery and cleared to go back to [facility] with instructions to be on clear liquids and follow-up evaluation at an outpatient basis. She denies any fever, chills, recent infection, diarrhea, constipation, melena, hematemesis, chest pain, palpitation, or dysuria, Allergies/Medications Allergies: Coded Allergies: NO KNOWN ALLERGIES (12/10/13) Home Med list Acetaminophen (Tylenol Tab 325 MG) 325 MG TAB 2 TAB PO Q4P PRN mild to moderate pain Acetazolamide 250 MG TABLET 1 TAB PO Wednesday Fluid Overload Please take this medication on Wednesday, Wednesday, Wednesday. Albuterol (Proventil) 0.09 MG/Actuation ESCOBAR 2 PUFF INH Q6 PRN WHEEZING Apixaban (Eliquis) 2.5 MG TABLET 1 TAB PO BID Venous Thromboembolism Docusate Sodium (Colace) 100 MG SGL 2 CAP PO DAILY CONSTIPATION Ergocalciferol (Vitamin D2) (Vitamin D2) 50,000 UNIT CAPSULE 1 CAP PO AD SUPPLEMENT (Reported) Ferrous Sulfate 325 MG TAB 1 TAB PO BID ANEMIA Furosemide (Lasix) 40 MG TABLET 1 TAB PO Wed SUN WATER RETENTION Please take this medication on Wednesday, , Wednesday and Wednesday. Past History Travel History Traveled to [place] past 21 day No Medical History Neurological: NONE EENT: NONE Cardiovascular: CHF Respiratory: obstructive sleep apnea Gastrointestinal: NONE Hepatic: NONE Renal: NONE Musculoskeletal: MORBIDLY OBESE Psychiatric: NONE Endocrine: NONE Blood Disorders: DVT Cancer(s): NONE Other Medical Hx: Morbid obesity History of MRSA: No History of VRE: No History of CDIFF: No Surgical History Surgical History: non-contributory Past Family/Social History Family History Relations & Conditions if any FATHER (Parkinsonism). SISTER (ovarian cancer). MOTHER (hypertension). Psychosocial History Who Do You Live With? other assisted living residence Services at Home: full service Primary Language: Wallisian Functional Ability ADLs Independent: dressing, eating, toileting, bathing. Ambulation: cane IADLs Independent: finances, food prep, telephone, medication admin. Needs Assist: shopping, housework, transportation. Review of Systems Review of Systems Constitutional: Denies: chills, diaphoresis, fever. EENTM: Denies: double vision, visual changes, eye pain, eye drainage. Cardiovascular: Denies: chest pain, edema, orthopena, palpitations. Respiratory: Denies: cough, hemoptysis, orthopnea, short of breath. GI: Denies: bloating, constipation, diarrhea, distention, bowel incontinence. Genitourinary: Denies: dysuria, frequency, hematuria, hesitation. Musculoskeletal: Denies: back pain, gout, joint pain. Skin: Denies: change in skin color, change in hair/nails, dryness, erythema. Neurological/Psychological: Denies: cognitive dysfunction, confusion, depressed. Hematologic/Endocrine: Reports: no symptoms. Denies: bruising, bleeding. Immunologic/Allergic: Reports: no symptoms. Denies: splenectomy. Exam & Diagnostic Data Last 24 Hrs of Vital Signs/I&O Vital Signs Date Time Temp Pulse Resp B/P Pulse O2 O2 Flow FiO2 Ox Delivery Rate 06/12 2046 97.5 78 18 107/59 97 Nasal 3.0L Cannula 06/12 1755 97.0 82 18 109/64 96 Nasal 3.0L Cannula 06/12 1511 94 Nasal 3.0L Cannula 06/12 1425 97.4 86 18 102/54 94 Nasal 3.0L Cannula Intake & Output 06/13 0800 06/13 0000 06/12 1600 Intake Total Output Total Balance Patient 147.418 kg Weight Physical Exam General Appearance Alert, Oriented X3, Cooperative, morbidly obese Skin No Significant Lesion HEENT Atraumatic, PERRLA, EOMI, Mucous Membr. moist/pink Neck Supple, No JVD Lymphatic Cervical nl Cardiovascular Regular Rate, Normal S1, Normal S2, No Murmurs Lungs Clear to Auscultation, Normal Air Movement Abdomen Normal Bowel Sounds, distended abdomen, hepatomegaly Neurological Normal Speech, Strength at 5/5 X4 Ext, Normal Tone, Sensation Intact, Cranial Nerves 3-12 NL Extremities No Clubbing, No Cyanosis, No Edema Vascular Normal Pulses, Pulses Symmetrical Last 24 Hrs of Labs/Ralph: Laboratory Tests 06/12/16 1716: Lactic Acid Cancelled 06/12/16 1522: Anion Gap 11, Estimated GFR 36 L, BUN/Creatinine Ratio 12.0, Glucose 102 H, Lactic Acid 1.0, Calcium 8.4, Total Bilirubin 0.6, AST 27, ALT 35, Alkaline Phosphatase 77, Total Protein 7.8, Albumin 3.5, Globulin 4.3 H, Albumin/ Globulin Ratio 0.8 L, Amylase < 30 L, Lipase 43, PT 15.4 H, INR 1.47 H, APTT 32 06/12/16 1457: CBC w Diff MAN DIFF ORDERED, RBC 4.30, MCV 90.9, MCH 26.5 L, RDW 33.6 H, MPV 7.5, Gran % 77.6 H, Lymphocytes % 17.4 L, Monocytes % 4.7, Eosinophils % 0.1, Basophils % 0.2, Absolute Granulocytes 5.8, Segmented Neutrophils 67, Absolute Lymphocytes 1.3, Lymphocytes 19 L, Monocytes 12 H, Absolute Monocytes 0.4, Eosinophils 1, Absolute Eosinophils 0, Absolute Basophils 0, Myelocytes 1 H, Nucleated RBCs 5 H, Platelet Estimate ADEQUATE, Polychromasia 2+, Hypochromic- Microcytic 2+, Poikilocytosis 2+, Anisocytosis 2+, Microcytic Cells 1+, Macrocytic Cells 1+, PUBS MCHC 29.2 L Microbiology 06/13 515 BLOOD: Blood Culture - COLB 06/13 515 BLOOD: Blood Culture - COLB Diagnostic Data Other Results SERVICE DATE: 06/12/16-1604 EXAM TYPE: US - US-LIMITED ABDOMEN EXAMINATION: US ABDOMEN LIMITED CLINICAL INFORMATION: Right upper quadrant pain. COMPARISON: CT of abdomen-pelvis, 06/11/2015 TECHNIQUE: Real-time imaging of the right upper quadrant abdominal viscera. FINDINGS: PANCREAS: The majority of the pancreatic body and tail are obscured by bowel gas. The visualized portions of the pancreas have normal echotexture and there is no pancreatic ductal dilatation. LIVER: There is hepatomegaly with right hepatic lobe measuring 22 cm in craniocaudal dimension. The liver parenchymal echotexture is normal. No evidence of focal hepatic lesion or intrahepatic bile duct dilatation. GALLBLADDER: Gallbladder is physiologically distended and contains multiple small calculi. The gallbladder wall is thickened (measures up to 7-8 mm thick), and this is most conspicuous at its interface with the liver. Trace amount of pericholecystic fluid is seen. There is no Mejia's sign. COMMON BILE DUCT: Normal in caliber measuring 0.5 cm in diameter. RIGHT KIDNEY: Normal. No hydronephrosis. No renal calculi or focal parenchymal lesions. The kidney measures 10.9 cm in maximum dimension. FREE FLUID: No free fluid within Morison's pouch. OTHER: Patient has an obese body habitus. IMPRESSION: 1. Cholelithiasis, gallbladder wall edema and trace pericholecystic fluid. These findings suggest possibility of acute cholecystitis. However, there is no Mejia's sign to confirm presence of acute cholecystitis. 2. Hepatomegaly in this obese patient. DICTATED BY: MARGARETTE IBANEZ MD Assessment/Plan Assessment: This is a 55-year-old female with a history of atrial fibrillation, CHF, XIANG, DVT, presents with complains of right upper quadrant abdominal pain radiating to the back and is found to have radiological findings suggestive of cholecystitis. Her labs also remarkable for hyperkalemia with no EKG changes. Impression * Abdominal pain. Right upper quadrant pain radiating to the back is suggestive of possible gall bladder etiology, However, ultrasound is negative for the Mejia's sign which is a test with about 95% sensitive. Could this be gastroenteritis? * Limited colonic perforation/diverticulitis CT findings? No leukocytosis, afebrile. But patient has abdominal pain. patton of ABX for now? * HEMA * Hyperkalemia. Possibly renal. Plan * Admit to general medicine, s/p 10 units of insulin with 50% dextrose with normalized potassium * Will trend BEP * Will trend amylase/lipase * Zofran every 4-6 as needed for nausea * Will obtain surgical consult to assess for possible acute cholecystitis * Will continue apixaban * will consider PT eval As Ranked By This Provider Problem List: 1. Abdominal pain 2. Hyperkalemia Core Measures/Miscellaneous Acute Coronary Syndrome ACS Diagnosis: No Cerebrovascular Accident CVA/TIA Diagnosis: No Congestive Heart Failure CHF Diagnosis: No Venous Thromboembolism VTE Risk Factors: Age > 40 VTE Prophylaxis Ordered Inpt: Pharm- Eliquis No Mech VTE prophylaxis d/t: No contraindications No VTE Pharm Prophylaxis d/t: No contraindications VTE Diagnosis: No VTE Type: NONE VTE Confirmed by (Test): NONE Severe Sepsis Severe Sepsis Present: No Septic Shock Septic Shock Present: No Miscellaneous Documentation Attending Case Discussed With: SOCORRO DOVER MD Primary Care Physician: PEGGY HARVEY MD Patient sees these Specialists none Level of Patient Care: General Medicine EMMA SMILEY,KUNAL 06/13/16 0050: Resident Review Statement Resident Statement: examined this patient, discussed with paid intern, agreed with paid intern, discussed with family, reviewed EMR data (avail), discussed with nursing , discussed with case mgmt, reviewed images, amended to note Other Findings: Concepcion is a 55-year-old woman with medical history of congestive heart failure morbid obesity obstructive sleep apnea DVT and pulmonary embolus with IVC filter on anticoagulation pulmonary hypertension and choledocholithiasis who presents with nausea weakness, found to have acute kidney injury. She was seen in the ER for similar symptoms yesterday and received a contrast load during a CAT scan of the abdomen pelvis. She had abdominal ultrasound that demonstrates cholelithiasis and gallbladder wall edema and trace pericholecystic fluid is findings there is possibility of acute cholecystitis however the Mejia sign was negative and cannot confirm the presence of acute cholecystitis. She had a surgical evaluation yesterday, at which time they do not believe that she had acute inflammation of the gallbladder per surgical and intervention. In the ER, she received 1 dose of SPS and nothing else. Presently her vital signs are stable. Physical examination above. Labs notable for normocytic anemia with hemoglobin of 11.4, nucleated RBCs noted. Potassium is 5.8, and creatinine is 1.5. All other tests are unremarkable. CT Abd/Pelvis Colonic diverticulosis with an adjacent fluid collection in the pelvis with internal foci of gas. While there is no significant colonic wall thickening. Slight inflammation is also seen in the region and this therefore suggests a contained perforation associated with diverticulitis. This patient has abdominal pain, as well as nausea in the setting of stable choledocholithiasis. She is afebrile no white count, with a negative Mejia sign. She may have a viral gastroenteritis. She has a hyperkalemia, however it could be hemolyzed sample or secondary to acute renal failure due to the contrast load she received yesterday during the workup of her abdominal symptoms. Her abdominal pain has subsided and she is tolerating PO intake, she is afebrile, absence of leukocytosis. - Problems - Abdominal pain ?viral gastroenteritis, acute cholecystitis, diverticulitis Contained colonic perforation HEMA Contrast induced nephropathy Hyperkalemia Hx of DVT/PE - Plan - Cont. cardiac telemetry monitoring Supportive Tx, antiemetics Surgical evaluation NS @ 100cc/hr x 1L Avoid contrast, jerri-i/arb, diuretics, and other nephrotoxins Insulin 10U iv x 1 w/ Dextrose S/p SPS 60ml x 1 Check plasma potassium, amylase/lipase Cont eliquis, albuterol PT eval DVT ppx on SOCORRO DOVER 06/13/16 0753: Attending MD Review Statement Attending Statement Attending MD Statement: examined this patient, discuss w/resident/PA/APPLE PEELER OPERATOR, agreed w/resident/PA/APPLE PEELER OPERATOR, reviewed EMR data (avail), reviewed images, amended to note Attending Assessment/Plan: CC: Persistent abdominal pain and vomiting PMHx: Obesity, DVT-PE, XIANG noncompliant with CPAP, HFpEF Patient was admitted in the month of April for worsening of heart failure and community-acquired pneumonia and was discharged to [facility]. Patient came to ER yesterday for right upper quadrant abdominal pain, on CT abdomen she was found to have mild diverticulitis with a contained perforation and gallbladder stones. Surgery was consulted that time, and patient was discharged. Patient comes back again today for nausea vomiting and persistent right upper quadrant pain. Vitals: Afebrile, BP and low normal side without significant tachycardia, saturating well on 3 L on exam: A O 3, morbidly obese, no respiratory distress, no JVD, neck supple. Abdomen examination: Mild right upper quadrant tenderness, no Mejia sign, voluntary guarding, no rebound tenderness, bowel sounds present. RS: Bibasilar crackles. CVS: S1-S2, RRR. Trace pedal edema present. No skin rashes or ulcers. Labs: Hemoglobin 11.4 WBC 7.5 but neutrophils 77%, potassium 5.8, CO2 33, creatinine 1.5, anion gap 11, lactate 1.0, LFT unremarkable. Lipase 43 Imaging: Right upper quadrant ultrasound was obtained which showed Cholelithiasis, gallbladder wall edema and trace pericholecystic fluid. CT done on Jun 11:Colonic diverticulosis with an adjacent fluid collection in the pelvis with internal foci of gas. While there is no significant colonic wall thickening. Slight inflammation is also seen in the region and this therefore suggests a contained perforation associated with diverticulitis. A and P #1 right upper quadrant abdominal pain: Mild tenderness, Mejia's sign negative but ultrasound suggestive of suspected cholecystitis, transaminases and bilirubin normal. Patient does not have any significant fever, leukocytosis but does have left shift. We will await for surgical opinion #2 contained perforation associated with diverticulitis adjacent to sigmoid colon, deep palpation did not reveal any tenderness but given her left shift, treat with ceftriaxone and Flagyl for now. Obtain blood cultures, UA and urine cultures if not done. #3 HEMA: Secondary to IV contrast, hold diuretic, gentle hydration with 1 L of normal saline at 75 mL per hour, watch for volume overload, if patient has increased oxygen requirement discontinue fluids, repeat labs in a.m. #4 hyperkalemia: Secondary to acute kidney injury, patient received a dose of Kayexalate in ER, I would suggest to go ahead with IV insulin followed by dextrose, and repeat labs in 4 hours. No EKG changes at this point. #5 continue Eliquis for DVT, adequate pain control.
[2016-06-13 02:29] VITALS: BP 113/60
--- NOTE | 2016-06-13 07:57 | Admission Certification ---
Admission Certification Certification Statement - As attending physician, I certify that at the time of - admission, based on clinical presentation, severity of - symptoms, need for further diagnostic testing and - therapeutic interventions, and risk of adverse outcomes - without in-hospital treatment, in my clinical assessment, - this patient requires an acute hospital stay for a minimum - of two nights or longer. I have also considered psychsocial - factors such as support system, advanced age, financial - issues, cognitive issues, and failed out-patient treatments, - past re-admission history, safety of patient, and lack of - compliance as applicable. Specific rationale supporting this admission is: Cholelithiasis, Suspected cholecystitis, acute kidney injury, contained perforation with diverticulitis
[2016-06-13 08:27] VITALS: BP 106/62
--- NOTE | 2016-06-13 09:15 | PN- Housestaff ---
Subjective Follow-up For: Abdomen pain Complaints: some abdomen pain over her right upper quadrant Subjective: I examined the patient today. She was resting comfortably in her bed, not in apparent distress. On questioning, she did have mild upper abdominal pain over the right side. No fever, nausea, vomiting, difficulty passing urine. Overnight, vitals have been stable, no overnight issues. Review of Systems Constitutional: Reports: no symptoms. Cardiovascular: Reports: no symptoms. Respiratory: Reports: no symptoms. Gastrointestinal: Reports: see HPI. Genitourinary: Reports: no symptoms. Neurological/Psychological: Reports: no symptoms. Objective Last 24 Hrs of Vital Signs/I&O Vital Signs Date Time Temp Pulse Resp B/P Pulse O2 O2 Flow FiO2 Ox Delivery Rate 06/13 1711 98.3 78 20 95/59 91 06/13 1600 94 Nasal 3.0L Cannula 06/13 1539 Nasal 3.0L Cannula 06/13 1030 92 Nasal 3.0L Cannula 06/13 0827 98.1 83 20 106/62 93 Nasal 3.0L Cannula 06/13 0800 94 Nasal 3.0L Cannula 06/13 0322 Nasal 3.0L Cannula 06/13 0229 97.9 87 20 113/60 93 Nasal 3.0L Cannula 06/12 2047 97.5 78 18 107/59 97 Nasal 3.0L Cannula 06/12 1755 97.0 82 18 109/64 96 Nasal 3.0L Cannula Intake & Output 06/13 1600 06/13 0800 06/13 0000 Intake Total 600 600 Output Total Balance 600 600 Intake, IV 600 600 Output, Drainage Output, Gastric Drainage Patient 178.715 kg Weight Physical Exam General Appearance: Alert, Oriented X3, Cooperative, No Acute Distress Neck: Supple, No JVD Lymphatic: Cervical nl Cardiovascular: Regular Rate, Normal S1, Normal S2 Lungs: Clear to Auscultation, Normal Air Movement Abdomen: Normal Bowel Sounds, Soft, Meija's sign positive, tenderness over right upper quadrant noted, no rebound tenderness, no guarding of abdomen Neurological: grossly intact Extremities: No Clubbing, No Cyanosis, Normal Pulses, No Tenderness/Swelling Vascular: Normal Pulses, Pulses Symmetrical Current Medications: Current Medications Sig/Arvind Start time Last Medication Dose Route Stop Time Status Admin Acetaminophen 650 MG Q6P PRN 06/12 2330 AC PO Acetaminophen/ 1 TAB Q6P PRN 06/12 2330 AC Hydrocodone Bitart PO Albuterol Sulfate 3 ML Q4P PRN 06/13 1530 AC INH Albuterol Sulfate 3 ML Q6P PRN 06/12 2345 DC INH Ampicillin Sodium/ 1,500 MG Q6 06/13 1800 AC 06/13 Sulbactam Sodium IV 1716 Sodium Chloride 100 ML Apixaban 2.5 MG BID 06/13 1000 DC PO Ceftriaxone Sodium 2,000 MG DAILY 06/13 1000 DC 06/13 IV 0917 Dextrose 25 GM ONCE ONE 06/12 2330 DC 06/12 IV 06/12 2331 2343 Dextrose/Sodium 1,000 ML Q20H 06/13 1300 AC 06/13 Chloride IV 1249 Dextrose/Sodium 1,000 ML Q13H 06/13 1100 DC 06/13 Chloride IV 1114 Diphenhydramine HCl 25 MG Q6P PRN 06/12 2330 AC PO Heparin Sodium 5,000 UNIT Q8 06/13 1400 CAN (Porcine) SC Heparin Sodium 25,000 UNIT Q24H 06/13 1230 AC 06/13 (Porcine) IV 1423 Sodium Chloride 500 ML Hydromorphone HCl 0.5 MG Q4P PRN 06/12 2330 AC IV Insulin Human Regular 10 UNITS ONCE ONE 06/12 2330 DC 06/12 IV 06/12 2331 2343 Metronidazole 500 MG IQ8 06/13 0800 DC 06/13 N/A 1 UNIT IV 0813 Ondansetron HCl 4 MG Q6P PRN 06/13 1245 AC IV Polyethylene Glycol 17 GM AT BEDTIME 06/13 2200 AC PO Senna/Docusate Sodium 1 TAB AT BEDTIME 06/13 2200 AC PO Sodium Chloride 1,000 ML ONCE ONE 06/12 2345 DC 06/12 IV 06/13 0944 2343 Sodium Polystyrene 0 .STK-MED ONE 06/12 2329 DC Sulfonate .ROUTE Sodium Polystyrene 60 ML ONCE ONE 06/12 2315 DC 06/13 Sulfonate PO 06/12 231 0011 Last 24 Hrs of Lab/Ralph Results Last 24 Hrs of Labs/Mics: Laboratory Tests 06/13/16 1035: Anion Gap 13, Estimated GFR 39 L, BUN/Creatinine Ratio 17.1, Magnesium 2.2 06/13/16 0102: 06/12/16 2337: Urine Color Cancelled, Urine Clarity Cancelled, Urine pH Cancelled, Ur Specific [place] Cancelled, Urine Protein Cancelled, Urine Ketones Cancelled, Urine Nitrite Cancelled, Urine Bilirubin Cancelled, Urine Urobilinogen Cancelled, Ur Leukocyte Esterase Cancelled, Ur Microscopic Cancelled, Urine Hemoglobin Cancelled, Urine Glucose Cancelled Microbiology 06/13 0720 BLOOD: Blood Culture - RECD 06/13 0550 BLOOD: Blood Culture - RECD Assessment/Plan Assessment: 55-year-old female with past medical history of congestive heart failure, obstructive apnea, pulmonary embolism and DVT status post IVC filter, morbid obesity, presented with abdominal pain, and is being managed in the general medical floor for the following issues: #Abdominal pain under evaluation Patient initially presented with vague abdominal pain, CT scan found microperforation secondary to diverticulitis, surgery was consulted in the emergency department who has impression that it is in resolving state so was discharged from the emergency department without antibiotic. She later visited the emergency department began yesterday, with worsening abdominal pain. Mejia's sign today is positive. Ultrasound shows radiological signs of cholecystitis. -Patient has been kept nothing by mouth -IV fluids with D5W half normal saline has been started at a low basal rate, given her history of congestive heart failure -Pain management continuing -Surgical consultation following. -If pain is worsening, change in mental status or clinical presentation, surgical team will be notified for any acute intervention. -According to conversation with surgical PA this morning, she would be a poor candidate for elective surgery, so she needs to be medically optimized before going for elective surgery. Liver, if she deteriorates, percutaneous cholecystostomy via interventional radiology would be the first option. But surgery team would be notified anyway. -Patient has multiple comorbidities including congestive heart failure, echo done on April 2016 shows ejection fraction of 55-60%, morbid obesity, obstructive sleep apnea, on anticoagulation with Eliquis, which makes surgery risky. However, some of the risk factors can be reduced for exam, patient has been stopped on Eliquis Anticoagulation and IV heparin drip has been started, fluid state being optimized, thus correcting her dehydration. -Zofran for nausea -We will continue to monitor her CBC, BEP, liver function test. #Hyperkalemia -Monitor potassium level later today, and correct if necessary #Diabetes mellitus -Continue insulin sliding scale #Patient is currently nothing by mouth #DVT prophylaxis by IV heparin drip #Full CODE STATUS Problem List: 1. Diverticulitis large intestine 2. Cholecystitis 3. Acute kidney injury 4. Hyperkalemia 5. Abdominal pain 6. Sleep apnea, obstructive 7. CHF (congestive heart failure) 8. History of pulmonary embolism 9. History of DVT (deep vein thrombosis) 10. Presence of IVC filter Pain Ratin Pain Location: Right upper quadrant of abdomen Pain Goal: Pain 4 or less Pain Plan: When necessary Tomorrow's Labs & Rationales: CBC, BEP, liver function test, to monitor her progression of cholecystitis, infection
--- NOTE | 2016-06-13 12:40 | Cons- General Surgery ---
General Information and HPI Consulting Request Date of Consult: 06/12/16 Requested By: ER / SOCORRO Krishna MD History of Present Illness: CC: abdominal pain and vomiting HPI: I'm evaluating her in the ER at 9:30 PM Wednesday the . History is limited because she is somnolent and a little confused, I reviewed the available chart on [facility], she is a 55-year-old nondiabetic nonsmoker overweight on oral anticoagulation for history of DVT PE, recently admitted for CHF in April on review, from the to the then discharged to short-term rehabilitation supplemental oxygen diuretics and antibiotics. Then late last night, she was brought to the ER with abdominal pain improved was discharged and then returned later this afternoon after vomiting. She says she has reflux chronically and describes a sharp crampy pain in the middle of her abdomen, chronic intermittent but worst this time, not sided and not subcostal she denies any problems with her bowel movements or any bleeding per rectum denies any back pain, currently and she diet denies any relationship to this pain to food, but admits to feeling uncomfortable after eating too much. She denies any known personal or family history of gallbladder disease. Otherwise no changes bowel habits, weight or appetite. I've reviewed the [facility]. No history of GERD, PUD, bleeding problems, heart disease or issues with anesthesia. Apparently no prior abdominal surgery. On review there is a history of an apparent pelvic hematoma in 2004 ,but we have limited information imaging on this. Allergies/Medications Allergies: Coded Allergies: NO KNOWN ALLERGIES (12/10/13) Home Med List: Acetaminophen (Tylenol Tab 325 MG) 325 MG TAB 2 TAB PO Q4P PRN mild to moderate pain Acetazolamide 250 MG TABLET 1 TAB PO Wednesday Fluid Overload Please take this medication on Wednesday, Wednesday, Wednesday. Albuterol (Proventil) 0.09 MG/Actuation ESCOBAR 2 PUFF INH Q6 PRN WHEEZING Apixaban (Eliquis) 2.5 MG TABLET 1 TAB PO BID Venous Thromboembolism Docusate Sodium (Colace) 100 MG SGL 2 CAP PO DAILY CONSTIPATION Ergocalciferol (Vitamin D2) (Vitamin D2) 50,000 UNIT CAPSULE 1 CAP PO AD SUPPLEMENT (Reported) Ferrous Sulfate 325 MG TAB 1 TAB PO BID ANEMIA Furosemide (Lasix) 40 MG TABLET 1 TAB PO SAT SUN WATER RETENTION Please take this medication on Wednesday, , Wednesday and Wednesday. Current Medications: Current Medications Sig/Arvind Start time Last Medication Dose Route Stop Time Status Admin Acetaminophen 650 MG Q6P PRN 06/12 2330 AC PO Acetaminophen/ 1 TAB Q6P PRN 06/12 2330 AC Hydrocodone Bitart PO Albuterol Sulfate 3 ML Q6P PRN 06/12 2345 AC INH Apixaban 2.5 MG BID 06/13 1000 DC PO Ceftriaxone Sodium 2,000 MG DAILY 06/13 1000 AC 06/13 IV 0917 Dextrose 25 GM ONCE ONE 06/12 2330 DC 06/12 IV 06/12 2331 2343 Dextrose/Sodium 1,000 ML Q13H 06/13 1100 AC 06/13 Chloride IV 1114 Diphenhydramine HCl 25 MG Q6P PRN 06/12 2330 AC PO Heparin Sodium 5,000 UNIT Q8 06/13 1400 AC (Porcine) SC Hydromorphone HCl 0.5 MG Q4P PRN 06/12 2330 AC IV Insulin Human Regular 10 UNITS ONCE ONE 06/12 2330 DC 06/12 IV 06/12 2331 2343 Metronidazole 500 MG IQ8 06/13 0800 AC 06/13 N/A 1 UNIT IV 0813 Polyethylene Glycol 17 GM AT BEDTIME 06/13 2200 AC PO Senna/Docusate Sodium 1 TAB AT BEDTIME 06/13 2200 AC PO Sodium Chloride 1,000 ML ONCE ONE 06/12 2345 DC 06/12 IV 06/13 0944 2343 Sodium Polystyrene 0 .STK-MED ONE 06/12 2329 DC Sulfonate .ROUTE Sodium Polystyrene 60 ML ONCE ONE 06/12 2315 DC 06/13 Sulfonate PO 06/12 2316 0011 Past History Medical History Neurological: NONE EENT: NONE Cardiovascular: CHF Respiratory: obstructive sleep apnea, pulmonary edema Gastrointestinal: NONE Hepatic: NONE Renal: NONE Musculoskeletal: MORBIDLY OBESE Psychiatric: NONE Endocrine: NONE Blood Disorders: anemia, DVT Cancer(s): NONE Other Medical Hx: Morbid obesity Surgical History Pertinent Surgical History: non-contributory Family History Relations & Conditions If Any: FATHER (Parkinsonism). SISTER (ovarian cancer). MOTHER (hypertension). Psychosocial History Where Do You Live? Acute Rehab Who Do You Live With? other assisted living residence Services at Home: full service Primary Language: Ukrainian Smoking Status: Never Smoked Functional Ability ADLs Independent: dressing, eating, toileting, bathing. Ambulation: cane IADLs Independent: finances, food prep, telephone, medication admin. Needs Assist: shopping, housework, transportation. Review of Systems Review of Systems: Limited because of mental status, so mostly gone from the chart Constitutional: No noting of fever, sweats or weight loss ENMT: Unobtainable Cardiovascular: No noting of chest pain, palpitations or new leg swelling Respiratory: No noting of new shortness of breath, cough, or sputum or dyspnea on exertion though that was the reason for her previous admission GI: History of GERD and she recalls this, but no bleeding per rectum : Unobtainable Musculoskeletal: Unobtainable Skin / Breast: Unobtainable Psychiatric: Unobtainable Hematologic / lymphatic system: On anticoagulation for DVT PE, no problems with excessive bleeding, bruising, or blood clots recently noted Exam & Diagnostic Data Vital Signs and I&O Vital Signs Date Time Temp Pulse Resp B/P Pulse O2 O2 Flow FiO2 Ox Delivery Rate 0L Cannula 06/12 2046 97.5 78 18 107/59 97 Nasal 3.0L Cannula 06/12 1755 97.0 82 18 109/64 96 Nasal 3.0L Cannula 06/12 1511 94 Nasal 3.0L Cannula 06/12 1425 97.4 86 18 102/54 94 Nasal 3.0L Cannula Intake & Output 06/12 1600 06/12 0800 06/12 0000 Intake Total Output Total Balance Intake, IV Output, Drainage Output, Gastric Drainage Patient 325 lb Weight Physical Exam: Exam limited by body habitus she's obese Constitutional: Confused a little sleepy but pleasant, no acute distress, minimally conversant Eyes: sclera anicteric ENMT: ears and nose atraumatic, moist mucous membranes, good dentition, no lip lesions Neck: Supple, trachea is midline, no cervical or supraclavicular adenopathy and no palpable thyromegaly Cardiovascular: S1, S2, no murmurs, no peripheral edema Respiratory: Breath sounds bilateral symmetric clear to auscultation with normal respiratory effort and no intercostal retractions GI: abdomen soft, nontender, nondistended, hepatosplenomegaly not appreciated by palpation which is limited Extremities / lymphatics: symmetrically warm, range of motion not evaluated, there is some chronic peripheral edema, no cervical, supraclavicular, axilla and inguinal regions not easily appreciable due to body habitus Musculoskeletal: Denies evaluate gait and station, no digital cyanosis, did not evaluate muscle strength, no increased tone no atrophy, motor grossly 5 out of 5 throughout the limited eval in bed Skin: no jaundice, no rashes warm, nondiaphoretic, no areas of erythema or induration anteriorly Psychiatric: mood and affect are appropriate but somewhat somnolent and a little confused Last 24 Hours of Labs: Laboratory Tests 06/12 06/12 1716 1522 Chemistry Sodium (137 - 145 mmol/L) 140 Potassium (3.5 - 5.1 mmol/L) 5.8 H Chloride (98 - 107 mmol/L) 96 L Carbon Dioxide (22 - 30 mmol/L) 33 H Anion Gap (5 - 16) 11 BUN (7 - 17 mg/dL) 18 H Creatinine (0.5 - 1.0 mg/dL) 1.5 H Estimated GFR (>60 ml/min) 36 L BUN/Creatinine Ratio (7 - 25 %) 12.0 Glucose (65 - 99 mg/dL) 102 H Lactic Acid (0.7 - 2.1 mmol/L) Cancelled 1.0 Calcium (8.4 - 10.2 mg/dL) 8.4 Magnesium (1.6 - 2.3 mg/dL) Total Bilirubin (0.2 - 1.3 mg/dL) 0.6 AST (14 - 36 U/L) 27 ALT (9 - 52 U/L) 35 Alkaline Phosphatase (<127 U/L) 77 Total Protein (6.3 - 8.2 g/dL) 7.8 Albumin (3.5 - 5.0 g/dL) 3.5 Globulin (1.9 - 4.2 gm/dL) 4.3 H Albumin/Globulin Ratio (1.1 - 2.2 %) 0.8 L Amylase (30 - 110 U/L) < 30 L Lipase (23 - 300 U/L) 43 Coagulation PT (9.4 - 12.5 SEC) 15.4 H INR (0.90 - 1.19) 1.47 H APTT (25 - 37 SEC) 32 06/12 1457 Hematology CBC w Diff MAN DIFF ORDERED WBC (4.8 - 10.8 /CUMM) 7.5 RBC (4.20 - 5.40 /CUMM) 4.30 Hgb (12.0 - 16.0 G/DL) 11.4 L Hct (37 - 47 %) 39.0 MCV (81.0 - 99.0 FL) 90.9 MCH (27.0 - 31.0 PG) 26.5 L RDW (11.5 - 14.5 %) 33.6 H Plt Count (130 - 400 /CUMM) 230 MPV (7.4 - 10.4 FL) 7.5 Gran % (42.2 - 75.2 %) 77.6 H Lymphocytes % (20.5 - 51.1 %) 17.4 L Monocytes % (1.7 - 9.3 %) 4.7 Eosinophils % (0 - 5 %) 0.1 Basophils % (0.0 - 2.0 %) 0.2 Absolute Granulocytes (1.4 - 6.5 /CUMM) 5.8 Segmented Neutrophils (42.2 - 75.2 %) 67 Absolute Lymphocytes (1.2 - 3.4 /CUMM) 1.3 Lymphocytes (20.5 - 51.1 %) 19 L Monocytes (1.7 - 9.3 %) 12 H Absolute Monocytes (0.10 - 0.60 /CUMM) 0.4 Eosinophils (0 - 5.0 %) 1 Absolute Eosinophils (0.0 - 0.7 /CUMM) 0 Absolute Basophils (0.0 - 0.2 /CUMM) 0 Myelocytes (0 - 0 %) 1 H Nucleated RBCs (0.0 - 0.0 /100WBC) 5 H Platelet Estimate (ADEQUATE) ADEQUATE Polychromasia 2+ Hypochromic-Microcytic 2+ Poikilocytosis 2+ Anisocytosis 2+ Microcytic Cells 1+ Macrocytic Cells 1+ PUBS MCHC (33.0 - 37.0 G/DL) 29.2 L Assessment/Plan Assessment/Plan I reviewed the CT scan from last night on PACS myself, the gallbladder is not surrounded by stranding, her colon has a very tortuous elongated redundant Marissa it's difficult to find the cecum, there seems to be a rounded mass or fluid collection in her mid abdomen just to the right of the area of the umbilicus might be part of her bladder no obvious gas in it, we'll have to review this area with a radiologist. I also reviewed the ultrasound which does not show significant wall thickening there are some dependent stones. Impression is some new nonspecific abdominal pain associated with vomiting proximally 3 weeks after being admitted for CHF. Overall she is not a good surgical candidate in part because of the Eliquis, there are many risks for morbidity and even mortality, for example including sleep apnea morbid obesity hyperkalemia, elevation and BUN/creatinine, might be dehydrated, so would prefer to optimize medically and try to firm up the diagnosis before considering intervention. She is afebrile without leukocytosis or tenderness over her gallbladder whether on exam or by ultrasound, and she's been on antibiotics, going against cholecystitis. But we'll have to watch for worsening because the physical exam is very limited. Continue to check labs and exam for some relative differences, will review films with radiologist unfortunately we don't have any priors for comparison, another consideration is that she seems uncomfortable in the periumbilical region which is where this unusual finding is on CT but I agree this is not too far from her gallbladder either. Problem List: 1. Abdominal pain 2. CHF (congestive heart failure) 3. Sleep apnea, obstructive 4. Hyperkalemia Consult Acknowledgment - Thank you for your consult request.
--- NOTE | 2016-06-13 16:01 | PN- Att Addend ---
Attending MD Review Statement Attending Statement Attending MD Statement: examined this patient, discuss w/resident/PA/CHOCOLATE MOLDER, agreed w/resident/PA/CHOCOLATE MOLDER, reviewed EMR data (avail), discussed w/nursing Attending Assessment/Plan: Patient seen and examined at bedside and discussed with patient as well as the resident the care plan. Patient has history of DVT and the IVC filter placement many years ago on eliquis. We will hold that and start the patient on IV heparin pending surgery consult. Next Right upper quadrant pain with gallstone. LFTs are not elevated. We will await surgery's recommendations. Acute kidney injury with creatinine of 1.5 from baseline of 0.8. Creatinine today is 1.4. We will continue with hydration given that the patient received recent IV contrast. We will monitor her kidney function closely.
--- NOTE | 2016-06-13 16:24 | PN- General Surgery ---
Subjective Subjective: Follow-up of abdominal pain rule out cholecystitis, patient is still quite somnolent and difficult historian her nurse says she denies any abdominal pain patient also denies any abdominal pain during exam also denies recalling any recent lower abdominal pain. Patient denies any nausea fevers or sweats. Objective Vital Signs and I&Os I reviewed Vital Signs Date Time Temp Pulse Resp B/P Pulse O2 O2 Flow FiO2 Ox Delivery Rate 06/13 1539 Nasal 3.0L Cannula 06/13 1030 92 Nasal 3.0L Cannula 06/13 08 98.1 83 20 106/62 93 Nasal 3.0L Cannula 06/13 0800 94 Nasal 3.0L Cannula 06/13 0322 Nasal 3.0L Cannula 06/13 0229 97.9 87 20 113/60 93 Nasal 3.0L Cannula 06/12 2047 97.5 78 18 107/59 97 Nasal 3.0L Cannula 06/12 1755 97.0 82 18 109/64 96 Nasal 3.0L Cannula I reviewed Intake & Output 06/13 1600 06/13 0800 06/13 0000 06/12 1600 06/12 0800 06/12 0000 Intake Total 600 600 Output Total Balance 600 600 Intake, IV 600 600 Output, Drainage Output, Gastric Drainage Patient 394 lb 325 lb Weight Physical Exam: Constitutional: no acute distress no pain, somnolent but arousable Eyes: sclera anicteric ENMT: moist mucous membranes Cardiovascular: S1-S2 no murmurs no peripheral edema Respiratory: clear to auscultation with normal respiratory effort and no intercostal retractions GI: abdomen soft nontender nondistended Extremities / lymphatics: free range of motion no peripheral edema Skin: no jaundice no rashes warm, nondiaphoretic Psychiatric: mood and affect are appropriate and alert and oriented to person place and time Current Medications: I reviewed Current Medications Sig/Arvind Start time Last Medication Dose Route Stop Time Status Admin Acetaminophen 650 MG Q6P PRN 06/12 2330 AC PO Acetaminophen/ 1 TAB Q6P PRN 06/12 2330 AC Hydrocodone Bitart PO Albuterol Sulfate 3 ML Q4P PRN 06/13 1530 AC INH Albuterol Sulfate 3 ML Q6P PRN 06/12 2345 DC INH Ampicillin Sodium/ 1,500 MG Q6 06/13 1800 AC Sulbactam Sodium IV Sodium Chloride 100 ML Apixaban 2.5 MG BID 06/13 1000 DC PO Ceftriaxone Sodium 2,000 MG DAILY 06/13 1000 DC 06/13 IV 0917 Dextrose 25 GM ONCE ONE 06/12 2330 DC 06/12 IV 06/12 2331 2343 Dextrose/Sodium 1,000 ML Q20H 06/13 1300 AC 06/13 Chloride IV 1249 Dextrose/Sodium 1,000 ML Q13H 06/13 1100 DC 06/13 Chloride IV 1114 Diphenhydramine HCl 25 MG Q6P PRN 06/12 2330 AC PO Heparin Sodium 5,000 UNIT Q8 06/13 1400 CAN (Porcine) SC Heparin Sodium 25,000 UNIT Q24H 06/13 1230 AC 06/13 (Porcine) IV 1423 Sodium Chloride 500 ML Hydromorphone HCl 0.5 MG Q4P PRN 06/12 2330 AC IV Insulin Human Regular 10 UNITS ONCE ONE 06/12 2330 DC 06/12 IV 06/12 2331 2343 Metronidazole 500 MG IQ8 06/13 0800 DC 06/13 N/A 1 UNIT IV 0813 Ondansetron HCl 4 MG Q6P PRN 06/13 1245 AC IV Polyethylene Glycol 17 GM AT BEDTIME 06/13 2200 AC PO Senna/Docusate Sodium 1 TAB AT BEDTIME 06/13 2200 AC PO Sodium Chloride 1,000 ML ONCE ONE 06/12 2345 DC 06/12 IV 06/13 0944 2343 Sodium Polystyrene 0 .STK-MED ONE 06/12 2329 DC Sulfonate .ROUTE Sodium Polystyrene 60 ML ONCE ONE 06/12 2315 DC 06/13 Sulfonate PO 06/12 2316 0011 Results Last 48 Hours of Labs: I reviewed Laboratory Tests 06/13 06/13 06/12 06/12 06/12 1035 0102 2337 1716 1522 Chemistry Sodium (137 - 145 mmol/L) 142 140 Potassium (3.5 - 5.1 mmol/L) 5.4 H 4.9 5.8 H Chloride (98 - 107 mmol/L) 97 L 96 L Carbon Dioxide (22 - 30 mmol/L) 32 H 33 H Anion Gap (5 - 16) 13 11 BUN (7 - 17 mg/dL) 24 H 18 H Creatinine (0.5 - 1.0 mg/dL) 1.4 H 1.5 H Estimated GFR (>60 ml/min) 39 L 36 L BUN/Creatinine Ratio (7 - 25 %) 17.1 12.0 Glucose (65 - 99 mg/dL) 102 H Lactic Acid (0.7 - 2.1 mmol/L) Cancelled 1.0 Calcium (8.4 - 10.2 mg/dL) 8.4 Magnesium (1.6 - 2.3 mg/dL) 2.2 Total Bilirubin (0.2 - 1.3 mg/dL) 0.6 AST (14 - 36 U/L) 27 ALT (9 - 52 U/L) 35 Alkaline Phosphatase (<127 U/L) 77 Total Protein (6.3 - 8.2 g/dL) 7.8 Albumin (3.5 - 5.0 g/dL) 3.5 Globulin (1.9 - 4.2 gm/dL) 4.3 H Albumin/Globulin Ratio (1.1 - 2.2 %) 0.8 L Amylase (30 - 110 U/L) < 30 L Lipase (23 - 300 U/L) 43 Coagulation PT (9.4 - 12.5 SEC) 15.4 H INR (0.90 - 1.19) 1.47 H APTT (25 - 37 SEC) 32 Urines Urine Color Cancelled Urine Clarity Cancelled Urine pH Cancelled Ur Specific Harmony Cancelled Urine Protein Cancelled Urine Ketones Cancelled Urine Nitrite Cancelled Urine Bilirubin Cancelled Urine Urobilinogen Cancelled Ur Leukocyte Esterase Cancelled Ur Microscopic Cancelled Urine Hemoglobin Cancelled Urine Glucose Cancelled 06/12 1457 Hematology CBC w Diff MAN DIFF ORDERED WBC (4.8 - 10.8 /CUMM) 7.5 RBC (4.20 - 5.40 /CUMM) 4.30 Hgb (12.0 - 16.0 G/DL) 11.4 L Hct (37 - 47 %) 39.0 MCV (81.0 - 99.0 FL) 90.9 MCH (27.0 - 31.0 PG) 26.5 L RDW (11.5 - 14.5 %) 33.6 H Plt Count (130 - 400 /CUMM) 230 MPV (7.4 - 10.4 FL) 7.5 Gran % (42.2 - 75.2 %) 77.6 H Lymphocytes % (20.5 - 51.1 %) 17.4 L Monocytes % (1.7 - 9.3 %) 4.7 Eosinophils % (0 - 5 %) 0.1 Basophils % (0.0 - 2.0 %) 0.2 Absolute Granulocytes (1.4 - 6.5 /CUMM) 5.8 Segmented Neutrophils (42.2 - 75.2 %) 67 Absolute Lymphocytes (1.2 - 3.4 /CUMM) 1.3 Lymphocytes (20.5 - 51.1 %) 19 L Monocytes (1.7 - 9.3 %) 12 H Absolute Monocytes (0.10 - 0.60 /CUMM) 0.4 Eosinophils (0 - 5.0 %) 1 Absolute Eosinophils (0.0 - 0.7 /CUMM) 0 Absolute Basophils (0.0 - 0.2 /CUMM) 0 Myelocytes (0 - 0 %) 1 H Nucleated RBCs (0.0 - 0.0 /100WBC) 5 H Platelet Estimate (ADEQUATE) ADEQUATE Polychromasia 2+ Hypochromic-Microcytic 2+ Poikilocytosis 2+ Anisocytosis 2+ Microcytic Cells 1+ Macrocytic Cells 1+ PUBS MCHC (33.0 - 37.0 G/DL) 29.2 L Assessment/Plan Assessment/Plan Impression is abdominal pain and vomiting a few weeks after an admission for CHF , difficult historian difficult physical exam but overall stable no shift on CBC and afebrile no nausea no vomiting, and on review of the CT scan, it appears that there is a perisigmoid inflammatory collection consistent with diverticulitis she has a very tortuous elongated colon and this process is near the level of her umbilicus so it's possible this is what she was feeling. Her gallbladder although doesn't appear completely normal, is higher up and to the right so perhaps she was partially treated last time she was discharged, but I feel she needs IV antibiotics to treat sigmoid diverticulitis. It appears to be a contained process she doesn't have peritoneal signs or systemic signs of infection so no surgeries indicated at this time but we'll have to watch that she is a difficult exam. The way this looks it also could develop into an abscess Problem List: 1. Sigmoid diverticulitis
[2016-06-13 17:11] VITALS: BP 95/59
--- NOTE | 2016-06-13 17:43 | Event Note ---
Event Note Event Note: Discussed with Dr. Patel about the patient's diagnosis. He believes that patient has a true diverticulitis based on the CT image, although patient is virtually asymptomatic with no signs indicative of diverticulitis. Accordingly he recommended that patient be started on IV Unasyn.
[2016-06-13 23:10] LABS: PTT 31 SEC (25-37)
[2016-06-14 00:02] VITALS: BP 109/53
[2016-06-14 05:51] LABS: ABSOLUTE BASOPHIL COUNT 0 /CUMM (0.0-0.2); ABSOLUTE EOSINOPHIL COUNT 0 /CUMM (0.0-0.7); ABSOLUTE GRANULOCYTE CT 6.2 /CUMM (1.4-6.5); ABSOLUTE LYMPH COUNT 1.2 /CUMM (1.2-3.4); ABSOLUTE MONOCYTE COUNT 0.6 /CUMM (0.10-0.60); BASOPHIL % 0.2 % (0.0-2.0); EOSINOPHIL % 0.4 % (0-5); GRANULOCYTE % 77.1 % (42.2-75.2); HEMATOCRIT 36.8 % (37-47); MEAN CORPUSCULAR HGB 26.8 PG (27.0-31.0); MEAN CORPUSCULAR HGB CONC 28.9 G/DL (33.0-37.0); MEAN PLATELET VOLUME 7.4 FL (7.4-10.4); PLATELET COUNT 213 /CUMM (130-400); RBC DISTRIBUTION WIDTH 33.2 % (11.5-14.5); RED BLOOD CELL CT 3.96 /CUMM (4.20-5.40); WHITE BLOOD CELL COUNT 8.1 /CUMM (4.8-10.8)
[2016-06-14 06:01] LABS: PTT 95 SEC (25-37)
[2016-06-14 08:08] VITALS: BP 104/62
--- NOTE | 2016-06-14 08:39 | PN- Housestaff ---
Subjective Follow-up For: Abdomen pain Subjective: seen and examined patient. offer no complaints today. Denies fever, abdominal pain, chills, chest pain, shortness of breath. States she feels hungry and would like to eat explained to her the need for keep her nothing by mouth for now. Review of Systems Constitutional: Denies: chills, diaphoresis, fever, malaise, weakness, unexplained weight loss. Cardiovascular: Denies: chest pain, edema, orthopena, palpitations, peripheral edema, syncope. Respiratory: Denies: see HPI, cough, hemoptysis, orthopnea, short of breath, sputum production, stridor, wheezing. Gastrointestinal: Denies: abdominal pain. Objective Last 24 Hrs of Vital Signs/I&O Vital Signs Date Time Temp Pulse Resp B/P Pulse O2 O2 Flow FiO2 Ox Delivery Rate 06/14 1043 83 92 06/14 0808 98.1 87 20 104/62 91 Nasal 3.0L Cannula 06/14 0800 94 Nasal 3.0L Cannula 06/14 0002 98.4 80 20 109/53 91 Nasal 3.0L Cannula 06/14 0000 Nasal 3.0L Cannula 06/13 1955 95 Nasal 3.0L Cannula 06/13 1711 98.3 78 20 95/59 91 06/13 1600 94 Nasal 3.0L Cannula 06/13 1539 Nasal 3.0L Cannula Intake & Output 06/14 1600 06/14 0800 06/14 0000 Intake Total 400 150 Output Total Balance 400 150 Intake, IV 400 150 Intake, Oral 0 0 Physical Exam General Appearance: Alert, Oriented X3, Cooperative, morbidly obese Cardiovascular: Regular Rate, Normal S1, Normal S2 Lungs: Normal Air Movement Abdomen: Normal Bowel Sounds, Soft, No Tenderness Current Medications: Current Medications Sig/Arvind Start time Last Medication Dose Route Stop Time Status Admin Acetaminophen 650 MG Q6P PRN 06/12 2330 AC PO Acetaminophen/ 1 TAB Q6P PRN 06/12 2330 AC Hydrocodone Bitart PO Albuterol Sulfate 3 ML Q4P PRN 06/13 1530 AC INH Albuterol Sulfate 3 ML Q6P PRN 06/12 2345 DC INH Ampicillin Sodium/ 1,500 MG Q6 06/13 1800 AC 06/14 Sulbactam Sodium IV 0531 Sodium Chloride 100 ML Apixaban 2.5 MG BID 01/14 1000 DC PO Ceftriaxone Sodium 2,000 MG DAILY 06/13 1000 DC 06/13 IV 0917 Dextrose/Sodium 1,000 ML Q20H 06/13 1300 AC 06/14 Chloride IV 0741 Dextrose/Sodium 1,000 ML Q13H 06/13 1100 DC 06/13 Chloride IV 1114 Diphenhydramine HCl 25 MG Q6P PRN 06/12 2330 AC PO Heparin Sodium 7,500 UNIT ONCE ONE 06/14 0115 DC 06/14 (Porcine) IV 06/14 0116 0153 Heparin Sodium 5,000 UNIT Q8 06/13 1400 CAN (Porcine) SC Heparin Sodium 25,000 UNIT Q24H 06/13 1230 AC 06/14 (Porcine) IV 0739 Sodium Chloride 500 ML Hydromorphone HCl 0.5 MG Q4P PRN 06/12 2330 AC IV Metronidazole 500 MG IQ8 06/13 0800 DC 06/13 N/A 1 UNIT IV 0813 Ondansetron HCl 4 MG Q6P PRN 06/13 1245 AC IV Polyethylene Glycol 17 GM AT BEDTIME 06/13 2200 CAN PO Senna/Docusate Sodium 1 TAB AT BEDTIME 06/13 2200 AC PO Last 24 Hrs of Lab/Ralph Results Last 24 Hrs of Labs/Mics: Laboratory Tests 06/14/16 0530: Anion Gap 12, Estimated GFR 51 L, BUN/Creatinine Ratio 26.4 H, Total Bilirubin 0.4, Direct Bilirubin 0.4, AST 18, ALT 26, Alkaline Phosphatase 75, Total Protein 7.6, Albumin 3.2 L, APTT 95 H, CBC w Diff NO MAN DIFF REQ, RBC 3.96 L , MCV 93.0, MCH 26.8 L, RDW 33.2 H, MPV 7.4, Gran % 77.1 H, Lymphocytes % 14.7 L, Monocytes % 7.6, Eosinophils % 0.4, Basophils % 0.2, Absolute Granulocytes 6.2, Absolute Lymphocytes 1.2, Absolute Monocytes 0.6, Absolute Eosinophils 0, Absolute Basophils 0, PUBS MCHC 28.9 L 06/13/16 2346: APTT Cancelled 06/13/16 2250: APTT 31 Assessment/Plan Assessment: 55-year-old woman with past medical history of congestive heart failure, obstructive apnea, pulmonary embolism and DVT status post IVC filter, morbid obesity, presented with abdominal pain and vomitting, reports no pain,fever. CT scan findings of #Abdominal pain ? microperforation of diverticulitis,gallbladder wall is thickened -Patient is nothing by mouth for bowel rest -on IV unasyn 1.5mg q6 -IV fluids with D5W half normal saline -Surgery on board, appreciate recomendations -notify surgery pain is worsening, change in mental status or clinical presentation, a poor candidate for elective surgery due to multiple cormordities -echo done on April 2016 shows ejection fraction of 55-60%, -Zofran for nausea -We will continue to monitor her CBC, BEP, liver function test. historyof DVT s/p IVC filter eliquis on hold on IV heparin #Hyperkalemia -5.2 today #Diabetes mellitus -Continue insulin sliding scale monitor fS #Patient is currently nothing by mouth #DVT prophylaxis by IV heparin drip #Full CODE STATUS Problem List: 1. Chronic anemia 2. DVT (deep venous thrombosis) 3. Sleep apnea, obstructive 4. Diverticulitis large intestine Pain Ratin Pain Location: na Pain Goal: Pain 4 or less Pain Plan: current regimen Tomorrow's Labs & Rationales: on IVhep cbc hyperK bep
--- NOTE | 2016-06-14 09:36 | PN- General Surgery ---
Subjective Subjective: Patient resting comfortably, does not complain of abdominal pain presently. Is requesting food. Denies nausea and vomitting. Is incontinent of urine. No bowel movement yet. Denies chest pain, shortness of breath and difficulty breathing. Objective Vital Signs and I&Os Vital Signs Date Time Temp Pulse Resp B/P Pulse O2 O2 Flow FiO2 Ox Delivery Rate 06/14 807 98.1 87 20 104/62 91 Nasal 3.0L Cannula 06/14 0800 94 Nasal 3.0L Cannula 06/14 0002 98.4 80 20 109/53 91 Nasal 3.0L Cannula 06/14 0000 Nasal 3.0L Cannula 06/13 1955 95 Nasal 3.0L Cannula 06/13 1711 98.3 78 20 95/59 91 06/13 1600 94 Nasal 3.0L Cannula 06/13 1539 Nasal 3.0L Cannula 06/13 1030 92 Nasal 3.0L Cannula Intake & Output 06/14 1600 06/14 0800 06/14 0000 06/13 1600 06/13 0800 06/13 0000 Intake Total 400 150 600 600 Output Total Balance 400 150 600 600 Intake, IV 400 150 600 600 Intake, Oral 0 0 Output, Drainage Output, Gastric Drainage Patient 394 lb Weight Physical Exam: General: Somnolent but arousable, oriented x3 HEENT: No evidence of scleral icterus Cardiac: RRR, s1s2 Pulm: Bilateral cta Skin: Dark, no appreciable evidence of jaundice Abdomen: Obese, non-tender, non-distended, +bs Extremiteis: Distal sensations intact, skin warm and well perfused, calves soft and non-tender bilaterally Assessment/Plan Assessment/Plan This is a 55 year old female, hospital day 2, here for r/o cholecystitis and microperf of diverticulitis. -Continue to f/u labs -Continue npo for now, heparin gtt for dvt/pe ppx while eliquis held -Last dose of eliquis less than 48 hours ago, surgical risk is elevated due to anticoagulation and other comorbidities. -Will continue to monitor abdominal exam -Will consider re-scan for assessment of fluid collection/abscess that may be treatable with percutaneous drain -Will d/w Dr. Hester
[2016-06-14 13:15] LABS: PTT 69 SEC (25-37)
[2016-06-14 16:56] VITALS: BP 108/62
--- NOTE | 2016-06-14 18:53 | PN- Att Addend ---
Attending MD Review Statement Attending Statement Attending MD Statement: examined this patient, discuss w/resident/PA/RECLAIMER, agreed w/resident/PA/RECLAIMER, reviewed EMR data (avail), discussed w/nursing Attending Assessment/Plan: Patient seen and examined at bedside and discussed with patient as well as the resident the care plan. Patient has history of DVT and the IVC filter placement many years ago on eliquis. We will cont to hold that and cont the patient on IV heparin. Surgical consult appreciated. pt still having RUQ pain on deep palpation. Ordered HIDA scan for am. Cont on Unasyn, increase dose as renal functions better. pt on unasyn for diverticulitis and ? Acute cholecystitis. Right upper quadrant pain with gallstone. LFTs are not elevated. HIDA scan tomorrow. Acute kidney injury -cr baseline of 0.8. Creatinine today is 1.1 from 1.4 yesterday. . We will continue with hydration given that the patient is NPO. D/w pt the care plan.
[2016-06-14 23:50] VITALS: BP 110/60
[2016-06-15 01:49] LABS: PTT 72 SEC (25-37)
--- NOTE | 2016-06-15 06:24 | PN- Housestaff ---
RUBEN SMILEY,CLARENCE 06/15/16 0624: Subjective Follow-up For: Abdomen pain Complaints: no complaints Subjective: I followed up and examined the patient today. She was lying comfortably in the bed, not in acute distress. She did not have any complaints, her abdominal pain was significantly reduced, was not nauseous anymore. She has been afebrile, vitals stable, no issues overnight. She admits to being hungry and is awaiting any diet orders. Review of Systems Constitutional: Reports: no symptoms. EENTM: Reports: no symptoms. Cardiovascular: Reports: no symptoms. Respiratory: Reports: no symptoms. Gastrointestinal: Reports: no symptoms. Genitourinary: Reports: no symptoms. Musculoskeletal: Reports: no symptoms. Skin: Reports: no symptoms. Neurological/Psychological: Reports: no symptoms. Hematologic/Endocrine: Reports: no symptoms. Objective Last 24 Hrs of Vital Signs/I&O Vital Signs Date Time Temp Pulse Resp B/P Pulse O2 O2 Flow FiO2 Ox Delivery Rate 06/15 0600 Nasal 3.0L Cannula 06/15 0000 Nasal 3.0L Cannula 06/14 2350 98.2 70 20 110/60 96 06/14 2200 Nasal 3.0L Cannula 06/14 2149 95 Nasal 3.0L Cannula 06/14 1656 98.1 75 20 108/62 91 06/14 1629 84 Room Air Room Air 06/14 1556 93 Nasal 3.0L Cannula 06/14 1043 83 92 06/14 0808 98.1 87 20 104/62 91 Nasal 3.0L Cannula 06/14 0800 94 Nasal 3.0L Cannula Intake & Output 06/15 0800 06/15 0000 06/14 1600 Intake Total 765 310 665.6 Output Total Balance 765 310 665.6 Intake, IV 765 250 665.6 Intake, Oral 60 0 Number 0 Bowel Movements Physical Exam General Appearance: Alert, Oriented X3, Cooperative, No Acute Distress Other Physical Findings: Physical Exam General Appearance: Alert, Oriented X3, Cooperative, No Acute Distress Neck: Supple, No JVD Lymphatic: Cervical nl Cardiovascular: Regular Rate, Normal S1, Normal S2 Lungs: Clear to Auscultation, Normal Air Movement Abdomen: Normal Bowel Sounds, Soft, non-tender now, no rebound tenderness, no guarding of abdomen Neurological: grossly intact Extremities: No Clubbing, No Cyanosis, Normal Pulses, No Tenderness/Swelling Vascular: Normal Pulses, Pulses Symmetrical Current Medications: Current Medications Sig/Arvind Start time Last Medication Dose Route Stop Time Status Admin Acetaminophen 650 MG .STK-MED ONE 06/14 2032 DC PO 06/14 203 Acetaminophen 650 MG Q6P PRN 06/12 2330 AC 06/14 PO 2036 Acetaminophen/ 1 TAB Q6P PRN 06/12 2330 AC Hydrocodone Bitart PO Albuterol Sulfate 3 ML Q4P PRN 06/13 1530 AC INH Ampicillin Sodium/ 3,000 MG Q6 06/14 1800 AC 06/15 Sulbactam Sodium IV 0552 Sodium Chloride 100 ML Ampicillin Sodium/ 1,500 MG Q6 06/13 1800 DC 06/14 Sulbactam Sodium IV 1115 Sodium Chloride 100 ML Dextrose/Sodium 1,000 ML Q20H 06/13 1300 AC 06/15 Chloride IV 0551 Diphenhydramine HCl 25 MG Q6P PRN 06/12 2330 AC PO Heparin Sodium 25,000 UNIT Q24H 06/13 1230 AC 06/14 (Porcine) IV 0739 Sodium Chloride 500 ML Hydromorphone HCl 0.5 MG Q4P PRN 06/12 2330 AC IV Ondansetron HCl 4 MG Q6P PRN 06/13 1245 AC IV Senna/Docusate Sodium 1 TAB AT BEDTIME 06/13 2200 AC PO Last 24 Hrs of Lab/Ralph Results Last 24 Hrs of Labs/Mics: Laboratory Tests 06/15/16 0110: APTT 72 H Assessment/Plan Assessment: 55-year-old woman with past medical history of congestive heart failure, obstructive sleep apnea, pulmonary embolism and DVT status post IVC filter, morbid obesity, presented with abdominal pain and vomitting, reports no pain, fever. #Abdominal pain, 2/2 Acute cholecystitis Patient's abdominal pain has significantly reduced following nothing by mouth for bowel rest, IV fluids, and IV Unasyn (D3 today) -Continue with IV unasyn 3000 MG every 6 hours -Continue with IV fluids with D5W half normal saline , given her history of congestive heart failure -Surgery on board, appreciate recomendations. -She is undergoing HIDA scan today, pending results. -A short conversation with surgical PA this morning mentioned that if patient improves clinically she would be good to discharge home, as a surgical reevaluation can be done. -notify surgery pain is worsening, change in mental status or clinical presentation, a poor candidate for elective surgery due to multiple cormordities -echo done on April 2016 shows ejection fraction of 55-60%, -Zofran for nausea -Liver function test already improving so we will not monitor tomorrow -We will continue to monitor her CBC, BEP historyof DVT s/p IVC filter eliquis on hold on IV heparin drip #Hyperkalemia -5.2 yesterday, today's lab pending #Diabetes mellitus -Continue insulin sliding scale monitor BS #Patient is currently nothing by mouth #DVT prophylaxis by IV heparin drip #Full CODE STATUS Problem List: 1. Diverticulitis large intestine 2. Cholecystitis 3. Acute kidney injury 4. Hyperkalemia 5. Sleep apnea, obstructive 6. CHF (congestive heart failure) 7. History of pulmonary embolism 8. History of DVT (deep vein thrombosis) 9. Presence of IVC filter 10. Morbid obesity Pain Ratin Pain Location: - Pain Goal: Remain pain free Pain Plan: PRN Tomorrow's Labs & Rationales: CBC, BEP monitor hyperkalemia and inflammed state, rule out cholangitis if fever develops MARGIE DARDEN MD 06/15/16 1222: Attending MD Review Statement Attending Statement Attending MD Statement: examined this patient, discuss w/resident/PA/DREDGE MECHANIC, agreed w/resident/PA/DREDGE MECHANIC, reviewed EMR data (avail) Attending Assessment/Plan: 55F PMH chronic diastolic CHF, XIANG, pulmonary embolism and DVT status post IVC filter, morbid obesity admitted with intractable RUQ pain with abdominal ultrasound showing acute cholecystitis. Afebrile, stable vitals, WBC 8, cultures NGTD. Eliquis being held and on heparin drip in case of surgery. Today patient's abdominal pain is improved and she is comfortable. Labs reviewed. Plan - Continue on general medicine - Follow up HIDA scan - Follow surgery recommendations - Follow up cultures - Continue Unasyn - Continue heparin drip, hold Eliquis - Monitor LFTs - If no plans for surgery, may slowly advance diet - Continue gentle IV hydration - Continue home medications
[2016-06-15 08:00] VITALS: BP 108/64
[2016-06-15] MEDS ORDERED: ZOFRAN ODT4 M1 SL (11:21)
--- NOTE | 2016-06-15 11:29 | Patient Discharge Instructions ---
Discharge Instructions General Discharge Information You were seen/treated for: Acute abdominal pain, cholecystitis, contained microperforation of large bowel diverticulitis You had these procedures: HIDA scan Watch for these problems: Severe abdominal pain, nausea, vomiting, fever, jaundice, yellow discoloration of skin or eyes. Please contact your PCP or seek medical attention as soon as possible. Special Instructions: Please visit your primary care physician within 7-10 days of discharge. Please follow up with your surgeon within one week of discharge. Please get a CT scan abdomen with PO contrast on 06/23/15. Please copy results to the PCP and the surgeon. Diet Continue normal diet: No Recommended Diet: Low Fat Activity Full Activity/No Limits: Yes Activity Self Limited: Yes Acute Coronary Syndrome Inclusion Criteria At DC or during hospital stay patient has or had the following: ACS DIAGNOSIS No Discharge Core Measures Meds if any: Prescribed or Continued at Discharge Meds if any: NOT Prescribed or Continued at Discharge Congestive Heart Failure Inclusion Criteria At DC or during hospital stay patient has or had the following: CHF DIAGNOSIS No Discharge Core Measures Meds if any: Prescribed or Continued at Discharge Meds if any: NOT Prescribed or Continued at Discharge Cerebrovascular accident Inclusion Criteria At DC or during hospital stay patient has or had the following: CVA/TIA Diagnosis No Discharge Core Measures Meds if any: Prescribed or Continued at Discharge Meds if any: NOT Prescribed or Continued at Discharge Venous thromboembolism Inclusion Criteria VTE Diagnosis No VTE Type NONE VTE Confirmed by (Test) NONE Discharge Core Measures - Per Current guidelines, there needs to be overlap - treatment for the first 5 days of Warfarin therapy. - If discharged on Warfarin prior to 5 days of - overlap therapy, the patient will need to be - assessed for post discharge needs including - *Post discharge parental anticoagulation - *Warfarin and/or parental anticoagulation education - *Follow up date to check INR post discharge At least 5 days overlap therapy as Inpatient No Meds if any: Prescribed or Continued at Discharge Note: Overlap Therapy is Warfarin and Anticoagulant Meds if any: NOT Prescribed or Continued at Discharge
--- NOTE | 2016-06-15 16:12 | Discharge Summary ---
Visit Information Visit Dates Admission Date: 06/12/16 Hospital Course Course Attending Physician: MARGIE DARDEN MD Primary Care Physician: CANDICE SMILEY,PEGGY Farley Consulting Request: Consulting Specialty: General Surgery Consulting Physician: JAY SMILEY,JOSE CARLOS Garcia Reason for Consult: acute abdomen, cholecystitis, microperforation diverticulitis Hospital Course: Ms Castelan is a 55 years old pleasant lady with past medical history of congestive heart failure with preserved ejection fraction (55%), obstructive sleep apnea on nocturnal CPAP, morbid obesity, history of pulmonary embolism and deep vein thrombosis status post IVC filter, presented to the emergency department on 06/11/2016 from [facility] for evaluation of abdominal pain since an hour on that day. She was thoroughly evaluated and a CAT scan revealed colonic diverticulitis with an adjacent fluid collection in the pelvis with internal foci of gas. Surgical consult was placed, who thought that this could be a contained resolving microperforation of diverticulitis, so was discharged from the emergency department without antibiotics. She returned the second day to the emergency department with similar complaints of abdominal pain, nausea, and vomiting. Of note, she did not have any fever, chills, diarrhea, constipation, melena, hematemesis, dysuria, chest pain, dysuria. Her vitals in the emergency department this time was temperature 97.4, pulse 86, respiration 18, blood pressure 102/54 (low), pulse oximetry 94% with additional oxygen via nasal cannula at 3 L/m. Her labs showed WBC 7.5, hemoglobin 11.4, hematocrit 29.0 and platelets 2:30. And by chemistry, sodium was 140, she was hyperkalemic at 5.8, BUN 18, creatinine 1.5, glucose 102, amylase less than 30, lipase 43, INR 1.47. Ultrasound showed cholelithiasis with gallbladder wall edema and trace pericholecystic fluid suggesting the possibility of acute cholecystitis but Mejia's sign was negative clinically. She was managed in the general medical floor for the following issues: #Acute abdominal pain, evaluating for acute calculus cholecystitis; resolving microperforation of large bowel (Sigmoid) diverticulitis Patient was managed with bowel rest, that is nothing by mouth, IV fluids, pain management, IV antibiotics, antiemetics, PPI. On 06/13/2016 morning, she had right upper quadrant pain and Mejia's sign was found to be positive. Considering the possibility of acute cholecystitis surgery was consulted who suggested that due to her comorbidities, she would be a poor candidate for cholecystectomy, as such, if her condition deteriorates, percutaneous cholecystostomy can be performed via interventional radiology, followed by interval cholecystectomy after she is medically optimized. While in the medical patton, her dehydration was corrected with gentle hydration considering her history of congestive heart failure, respiratory care was being provided for her obstructive sleep apnea, heart anticoagulation with Eliquis was held and converted to heparin drip. Patient, as well as her daughter was well explained about the risks and benefits of the surgery including an emergency surgery/procedure, to which they understood and agreed. Dr Jose Carlos Hester MD from surgery followed-up with the patient daily, and suggested continuing medical management of her condition. She remained afebrile , and pain abdomen was much reduced during the course of treatment. Bowel movement ..................................................... #History of DVT, PE, status post IVC filter Her regular anticoagulation with Eliquis was held for the region of possible surgical intervention if her condition deteriorates. Instead, anticoagulation was provided by continous IV heparin drip. #History of congestive heart failure Patient's blood pressure was running on the lower range so antihypertensive medications were not initially started. She was kept on CPAP during nighttime. She did not show signs of decompensation due to congestive heart failure during her stay. #Acute kidney injury, resolved She had some dehydration at presentation in the emergency department, which was corrected by IV fluids slowly, considering her history of congestive heart failure. #Hyperkalemia Her potassium was running high since day 1, possibly due to the acute kidney injury secondary to dehydration. #Diabetes mellitus Her oral antidiabetic medications were kept on hold and she was kept on insulin sliding scale, with regular monitoring of blood sugar. She was kept nothing by mouth for most of her stay, depending improvement in her clinical condition as well as for possible surgical interventions. #DVT prophylaxis was done by IV heparin drip. #She was a full CODE STATUS. Complications: None Allergies: Coded Allergies: NO KNOWN ALLERGIES (12/10/13) Significant Procedures: HIDA scan done on 06/15/16: SERVICE DATE: 06/12/16-1605 EXAM TYPE: US - US-LIMITED ABDOMEN EXAMINATION: US ABDOMEN LIMITED CLINICAL INFORMATION: Right upper quadrant pain. COMPARISON: CT of abdomen-pelvis, 06/11/2015 TECHNIQUE: Real-time imaging of the right upper quadrant abdominal viscera. FINDINGS: PANCREAS: The majority of the pancreatic body and tail are obscured by bowel gas. The visualized portions of the pancreas have normal echotexture and there is no pancreatic ductal dilatation. LIVER: There is hepatomegaly with right hepatic lobe measuring 22 cm in craniocaudal dimension. The liver parenchymal echotexture is normal. No evidence of focal hepatic lesion or intrahepatic bile duct dilatation. GALLBLADDER: Gallbladder is physiologically distended and contains multiple small calculi. The gallbladder wall is thickened (measures up to 7-8 mm thick), and this is most conspicuous at its interface with the liver. Trace amount of pericholecystic fluid is seen. There is no Mejia's sign. COMMON BILE DUCT: Normal in caliber measuring 0.5 cm in diameter. RIGHT KIDNEY: Normal. No hydronephrosis. No renal calculi or focal parenchymal lesions. The kidney measures 10.9 cm in maximum dimension. FREE FLUID: No free fluid within Morison's pouch. OTHER: Patient has an obese body habitus. IMPRESSION: 1. Cholelithiasis, gallbladder wall edema and trace pericholecystic fluid. These findings suggest possibility of acute cholecystitis. However, there is no Mejia's sign to confirm presence of acute cholecystitis. 2. Hepatomegaly in this obese patient. DICTATED BY: MARGARETTE IBANEZ MD DATE/TIME DICTATED:06/12/161712 BROACHER:ENMA DATE/TIME TRANSCRIBED:06/12/161712 SERVICE DATE: 06/11/16 EXAM TYPE: CAT - CT ABD & PELVIS W IV CONTRAST EXAMINATION: CT ABDOMEN AND PELVIS WITH CONTRAST CLINICAL INFORMATION: Abdominal pain with nausea and vomiting. COMPARISON: None. TECHNIQUE: Multidetector volumetric imaging was performed of the abdomen and pelvis before and after the IV administration of 95 mL of Optiray 320 intravenous contrast. Sagittal and coronal reformatted images were obtained on the technologist's workstation. DLP: 1575 mGy-cm. FINDINGS: LUNG BASES: The visualized lung bases are unremarkable. LIVER, GALLBLADDER, AND BILIARY TREE: The liver is normal in attenuation. The liver is enlarged, measuring 21 cm in CC dimension. No focal hepatic lesion or biliary ductal dilatation is present. The gallbladder is unremarkable with no evidence of radiopaque gallstones, gallbladder wall thickening, or obvious pericholecystic inflammatory changes. PANCREAS: Unremarkable. SPLEEN: Unremarkable. ADRENAL GLANDS: Unremarkable. KIDNEYS AND URETERS: The kidneys are normal in size, shape, and attenuation. No hydronephrosis, hydroureter, or calculi seen. No perinephric stranding. BLADDER: The bladder is partially distended without definite wall thickening, although the pelvic collection abuts the superior left aspect of the bladder with loss of the fat plane. GASTROINTESTINAL TRACT: Small hiatal hernia. The stomach is otherwise unremarkable. No dilated loops of bowel or evidence of obstruction. Normal appendix. There is colonic diverticulosis. There is no evidence of acute wall thickening. There is a contained collection adjacent to the sigmoid colon with internal foci of gas and fluid. This collection measures 5.6 x 4.7 x 3.8 cm. Minimal inflammatory changes noted. This constellation of findings is consistent with a contained perforation from diverticulitis. ABDOMINAL WALL: No significant hernia is appreciated. LYMPH NODES: No pathologically enlarged lymph nodes. Multiple small retroperitoneal lymph nodes are present. VASCULAR: An IVC filter is noted at the level of the renal veins. Scattered atherosclerotic calcifications. Small varices are noted within the left abdomen. PELVIC VISCERA: The uterus is unremarkable. No adnexal mass. Of note, the pelvic collection is seen in the region of the left adnexa likely abutting the left ovary. OSSEOUS STRUCTURES: No acute or suspicious osseous abnormality. Multilevel degenerative changes of the spine. Severe degenerative changes of the right hip with loss of the joint space, subchondral sclerosis and cyst formation, and osteophyte formation. IMPRESSION: Colonic diverticulosis with an adjacent fluid collection in the pelvis with internal foci of gas. While there is no significant colonic wall thickening. Slight inflammation is also seen in the region and this therefore suggests a contained perforation associated with diverticulitis. Hepatomegaly. Severe degenerative changes of the right hip. This critical result was discussed with MAGALY AGUILAR MD by telephone at 06/11/2016 11:54 PM and it was ascertained that the content and urgency of the report was understood at the time of direct communication. DICTATED BY: OVIDIO SMILEY,KURT DATE/TIME DICTATED:06/11/162347 BROACHER:ENMA DATE/TIME TRANSCRIBED:06/11/162347 Disposition Summary Disposition Principal Diagnosis: Acute cholecystitis Contained microperforation of last diverticulitis Additional Diagnosis: Congestive heart failure, morbid obesity, obstructive sleep apnea, history of pulmonary embolism, DVT, IVC filter Discharge Disposition: home or self care Discharge Instructions General Discharge Information Code Status: Full Code Patient's Diet: Regular but low fatty diet Patient's Activity: As tolerated Follow-Up Instructions/Appts: Please visit your primary care physician within 7-10 days of discharge. Please return to emergency if symptoms worsen. Watch for these problems: Severe abdominal pain, nausea, vomiting, fever, jaundice= yellow discoloration of skin or eyes. Medications at Discharge Discharge Medications: Continue taking these medications: Acetaminophen (Tylenol Tab 325 MG) 325 MG TAB 2 Tablet ORAL EVERY 4 HOURS NEEDED as needed for mild to moderate pain Qty = 30 Comments: Last Taken: 12/14/13 Time: 5:00 PM Albuterol (Proventil) 0.09 MG/Actuation ESCOBAR 2 PUFF Inhale through mouth EVERY SIX HOURS as needed for WHEEZING Qty = 1 Ferrous Sulfate (Ferrous Sulfate) 325 MG TAB 1 Tablet ORAL TWICE DAILY Qty = 30 Docusate Sodium (Colace) 100 MG SGL 2 Capsule ORAL DAILY Qty = 30 Apixaban (Eliquis) 2.5 MG TABLET 1 Tablet ORAL TWICE DAILY Qty = 40 Comments: Last Taken:05/20/16 Time:9AM Acetazolamide (Acetazolamide) 250 MG TABLET 1 Tablet ORAL WEDNESDAY, WEDNESDAY AND WEDNESDAY Qty = 20 Instructions: Please take this medication on Wednesday, Wednesday, Wednesday. Comments: Last Taken:05/20/16 Time:11AM Furosemide (Lasix) 40 MG TABLET 1 Tablet ORAL Wed SUN Qty = 30 Instructions: Please take this medication on Wednesday, , Wednesday and Wednesday. Comments: Last Taken:05/20/16 Time:9AM Ergocalciferol (Vitamin D2) (Vitamin D2) 50,000 UNIT CAPSULE 1 Capsule ORAL As Directed Comments: Wed Start taking the following new medications: Ondansetron (Zofran Odt) 4 MG TAB.RAPDIS 1 Tablet SUBLINGUAL THREE TIMES DAILY as needed for nausea, vomitting Qty = 10 No Refills
[2016-06-15 16:31] VITALS: BP 160/87
--- NOTE | 2016-06-15 16:56 | PN- General Surgery ---
Subjective Subjective: Follow-up of diverticulitis, patient still very forgetful but denies any abdominal pain thought she was nauseous earlier doesn't remember exactly when she is tolerating diet doesn't recall any BMs or flatus. Objective Vital Signs and I&Os I reviewed Vital Signs Date Time Temp Pulse Resp B/P Pulse O2 O2 Flow FiO2 Ox Delivery Rate 06/15 1631 97.9 76 22 160/87 93 Nasal 3.0L Cannula 06/15 1400 Nasal 3.0L Cannula 06/15 1212 96 Nasal 3.0L Cannula 06/15 0800 Nasal 3.0L Cannula 06/15 08 97.5 81 20 108/64 98 Nasal 3.0L Cannula 06/15 0600 Nasal 3.0L Cannula 06/15 0000 Nasal 3.0L Cannula 06/14 2350 98.2 70 20 110/60 96 06/14 2200 Nasal 3.0L Cannula 06/14 2149 95 Nasal 3.0L Cannula 06/14 1656 98.1 75 20 108/62 91 Intake & Output 06/15 1600 06/15 0800 06/15 0000 06/14 1600 06/14 0800 06/14 0000 Intake Total 350 765 310 665.6 400 150 Output Total Balance 350 765 310 665.6 400 150 Intake, IV 350 765 250 665.6 400 150 Intake, Oral 60 0 0 0 Number 0 Bowel Movements Patient 394 lb Weight Physical Exam: Constitutional: no acute distress no pain Eyes: sclera anicteric ENMT: moist mucous membranes Cardiovascular: S1-S2 no murmurs no peripheral edema Respiratory: clear to auscultation with normal respiratory effort and no intercostal retractions GI: abdomen soft nontender nondistended Extremities / lymphatics: free range of motion no peripheral edema Skin: no jaundice no rashes warm, nondiaphoretic Psychiatric: mood and affect are appropriate and alert and oriented to person place and time Current Medications: I reviewed Current Medications Sig/Arvind Start time Last Medication Dose Route Stop Time Status Admin Acetaminophen 650 MG .STK-MED ONE 06/14 2032 DC PO 06/14 2033 Acetaminophen 650 MG Q6P PRN 06/12 2330 AC 06/14 PO 2035 Acetaminophen/ 1 TAB Q6P PRN 06/12 2330 AC Hydrocodone Bitart PO Albuterol Sulfate 3 ML Q4P PRN 06/13 1530 AC INH Ampicillin Sodium/ 3,000 MG Q6 06/14 1800 AC 06/15 Sulbactam Sodium IV 1255 Sodium Chloride 100 ML Dextrose/Sodium 1,000 ML Q20H 06/13 1300 DC 06/15 Chloride IV 0551 Diphenhydramine HCl 25 MG Q6P PRN 06/12 2330 AC PO Heparin Sodium 25,000 UNIT Q24H 06/13 1230 AC 06/14 (Porcine) IV 0739 Sodium Chloride 500 ML Hydromorphone HCl 0.5 MG Q4P PRN 06/12 2330 AC 06/15 IV 1305 Ondansetron HCl 4 MG Q6P PRN 06/13 1245 AC IV Senna/Docusate Sodium 1 TAB AT BEDTIME 06/13 2200 AC PO Results Last 48 Hours of Labs: I reviewed Laboratory Tests 06/15 06/15 06/14 06/14 1635 0110 1242 0530 Chemistry Sodium (137 - 145 mmol/L) Pending 143 Potassium (3.5 - 5.1 mmol/L) Pending 5.2 H Chloride (98 - 107 mmol/L) Pending 98 Carbon Dioxide (22 - 30 mmol/L) Pending 34 H Anion Gap (5 - 16) Pending 12 BUN (7 - 17 mg/dL) Pending 29 H Creatinine (0.5 - 1.0 mg/dL) Pending 1.1 H Estimated GFR (>60 ml/min) 51 L BUN/Creatinine Ratio (7 - 25 %) Pending 26.4 H Total Bilirubin (0.2 - 1.3 mg/dL) 0.4 Direct Bilirubin (< 0.4 mg/dL) 0.4 AST (14 - 36 U/L) 18 ALT (9 - 52 U/L) 26 Alkaline Phosphatase (<127 U/L) 75 Total Protein (6.3 - 8.2 g/dL) 7.6 Albumin (3.5 - 5.0 g/dL) 3.2 L Coagulation APTT (25 - 37 SEC) Pending 72 H 69 H 95 H Hematology CBC w Diff Pending NO MAN DIFF REQ WBC (4.8 - 10.8 /CUMM) Pending 8.1 RBC (4.20 - 5.40 /CUMM) Pending 3.96 L Hgb (12.0 - 16.0 G/DL) Pending 10.6 L Hct (37 - 47 %) Pending 36.8 L MCV (81.0 - 99.0 FL) Pending 93.0 MCH (27.0 - 31.0 PG) Pending 26.8 L RDW (11.5 - 14.5 %) Pending 33.2 H Plt Count (130 - 400 /CUMM) Pending 213 MPV (7.4 - 10.4 FL) Pending 7.4 Gran % (42.2 - 75.2 %) 77.1 H Lymphocytes % (20.5 - 51.1 %) 14.7 L Monocytes % (1.7 - 9.3 %) 7.6 Eosinophils % (0 - 5 %) 0.4 Basophils % (0.0 - 2.0 %) 0.2 Absolute Granulocytes (1.4 - 6.5 /CUMM) 6.2 Absolute Lymphocytes (1.2 - 3.4 /CUMM) 1.2 Absolute Monocytes (0.10 - 0.60 /CUMM) 0.6 Absolute Eosinophils (0.0 - 0.7 /CUMM) 0 Absolute Basophils (0.0 - 0.2 /CUMM) 0 PUBS MCHC (33.0 - 37.0 G/DL) Pending 28.9 L 06/13 06/13 2346 2250 Chemistry Potassium (3.5 - 5.1 mmol/L) 5.0 Coagulation APTT (25 - 37 SEC) Cancelled 31 Assessment/Plan Assessment/Plan On antibiotics for sigmoid diverticulitis unfortunately her exam is difficult to follow she doesn't really complain much but her vital signs stable she's afebrile need to follow the blood work because of this, continue present care, await bowel movement.
[2016-06-15 17:12] LABS: ABSOLUTE BASOPHIL COUNT 0 /CUMM (0.0-0.2); ABSOLUTE EOSINOPHIL COUNT 0 /CUMM (0.0-0.7); ABSOLUTE GRANULOCYTE CT 3.7 /CUMM (1.4-6.5); ABSOLUTE LYMPH COUNT 0.9 /CUMM (1.2-3.4); ABSOLUTE MONOCYTE COUNT 0.5 /CUMM (0.10-0.60); BASOPHIL % 0.6 % (0.0-2.0); EOSINOPHIL % 0.8 % (0-5); GRANULOCYTE % 71.2 % (42.2-75.2); HEMATOCRIT 36.8 % (37-47); MEAN CORPUSCULAR HGB CONC 29.1 G/DL (33.0-37.0); MEAN CORPUSCULAR VOLUME 92.7 FL (81.0-99.0); MEAN PLATELET VOLUME 7.5 FL (7.4-10.4); PLATELET COUNT 196 /CUMM (130-400); RBC DISTRIBUTION WIDTH 32.9 % (11.5-14.5); RED BLOOD CELL CT 3.98 /CUMM (4.20-5.40); WHITE BLOOD CELL COUNT 5.1 /CUMM (4.8-10.8)
--- NOTE | 2016-06-15 17:15 | NUCLEAR MEDICINE REPORT ---
EXAMINATION: BILIARY TRACT IMAGING STUDY CLINICAL INFORMATION: Abdominal pain, thickened gallbladder wall with calculi. COMPARISON: No previous biliary scan is available for comparison. Abdominal ultrasound dated 06/12/[address] scan of the abdomen dated 06/11/2016 are available for comparison.. TECHNIQUE: Serial gamma scintillation camera images were obtained over the abdomen for a total observation period 4 hours following the intravenous administration of 4.2 mCi Tc-99m Choletec. Due to the patient's inability to cooperate, initial images could not BE obtained until 28 minutes post injection, and following 18 minutes of subsequent imaging, were then discontinued at the patient's insistence. Delayed images were obtained at 4 hours. FINDINGS: There is good concentration of activity in the liver by 5 minutes post injection. Biliary activity is visualized by 28 minutes, the first time available post injection. Small bowel is also well visualized by 28 minutes. The gallbladder is not visualized at any time during the study. IMPRESSION: Nonvisualization the gallbladder is evidence of an obstructed cystic duct and strong evidence to suggest the diagnosis of acute cholecystitis. The common bile duct is patent. Liver function appears normal. Although the patient was unable to cooperate with the entire study, the study is technically adequate and is considered diagnostic.
[2016-06-15 17:20] LABS: PTT 64 SEC (25-37)
[2016-06-15 23:46] VITALS: BP 158/80
[2016-06-16 04:44] LABS: ABSOLUTE BASOPHIL COUNT 0 /CUMM (0.0-0.2); ABSOLUTE EOSINOPHIL COUNT 0.1 /CUMM (0.0-0.7); ABSOLUTE GRANULOCYTE CT 3.3 /CUMM (1.4-6.5); ABSOLUTE MONOCYTE COUNT 0.5 /CUMM (0.10-0.60); BASOPHIL % 0.6 % (0.0-2.0); EOSINOPHIL % 1.7 % (0-5); GRANULOCYTE % 66.6 % (42.2-75.2); HEMATOCRIT 35.1 % (37-47); MEAN CORPUSCULAR HGB 26.9 PG (27.0-31.0); MEAN CORPUSCULAR HGB CONC 29.2 G/DL (33.0-37.0); MEAN PLATELET VOLUME 7.3 FL (7.4-10.4); PLATELET COUNT 194 /CUMM (130-400); RBC DISTRIBUTION WIDTH 32.7 % (11.5-14.5); RED BLOOD CELL CT 3.82 /CUMM (4.20-5.40); WHITE BLOOD CELL COUNT 4.9 /CUMM (4.8-10.8)
[2016-06-16 04:52] LABS: PT 14.2 SEC (9.4-12.5)
[2016-06-16 04:55] LABS: PTT 55 SEC (25-37)
--- NOTE | 2016-06-16 05:42 | PN- Housestaff ---
LENY SORTO 06/16/16 0542: Subjective Follow-up For: 1. abdominal pain Subjective: She was comfortable this am. Stated that she did not have any nausea. Did not have any bowel movement. Dr. Chaparro spoke to the surgeon, and the plan was to continue conservative therapy for now. No surgery for now. Pt was to be begun on Eliquis. The pt was on apixaban 2.5 mg po bid, and indication for such a dose wasnt clear, as the pt doesnt meet the criteria for a low dose-age, sr creatinine, or weight. Called the pharmacy, and the PCP Dr. Mueller, who did not know about the dose. Currently started on 5mg bid dose, w/ a recommendation to see the pcp as ap for dosage adjustment. Review of Systems Constitutional: Reports: see HPI. Objective Last 24 Hrs of Vital Signs/I&O Vital Signs Date Time Temp Pulse Resp B/P Pulse O2 O2 Flow FiO2 Ox Delivery Rate 06/16 0000 Nasal 3.0L Cannula 06/15 2346 97.6 80 22 158/80 94 06/15 2200 Nasal 3.0L Cannula 06/15 2058 93 Nasal 3.0L Cannula 06/15 1720 Nasal 3.0L Cannula 06/15 1631 97.9 76 22 160/87 93 Nasal 3.0L Cannula 06/15 1400 Nasal 3.0L Cannula 06/15 1212 96 Nasal 3.0L Cannula 06/15 0800 Nasal 3.0L Cannula 06/15 0800 97.5 81 20 108/64 98 Nasal 3.0L Cannula 06/15 0600 Nasal 3.0L Cannula Intake & Output 06/16 0800 06/16 0000 06/15 1600 Intake Total 265.6 350 Output Total Balance 265.6 350 Intake, IV 265.6 350 Patient 394 lb Weight Physical Exam General Appearance: No Acute Distress Other Physical Findings: General Exam: AAOx3, No acute distress Skin: No rashes HEENT: PERRLA, EOMI Neck: Supple, No JVD No cervical lymphadenopathy CVS: Reg Rate, Normal S1,S2, No MGR Resp: Normal air entry, no ronchi/rales Abdomen: Soft, No tenderness, Normal Bowel Sounds Neuro: Normal Speech, Strength 5/5 b/l x 4 extremities, Sensation intact, CN III -XII NL, Reflexes 2+ Extremities: No cyanosis, no pedal edema. Current Medications: Current Medications Sig/Arvind Start time Last Medication Dose Route Stop Time Status Admin Acetaminophen 650 MG Q6P PRN 06/12 2330 AC 06/14 PO 2036 Acetaminophen/ 1 TAB Q6P PRN 06/12 233 AC 06/16 Hydrocodone Bitart PO 0410 Albuterol Sulfate 3 ML Q4P PRN 06/13 1530 AC INH Ampicillin Sodium/ 3,000 MG Q6 06/14 1800 AC 06/15 Sulbactam Sodium IV 2324 Sodium Chloride 100 ML Dextrose/Sodium 1,000 ML Q20H 06/13 1300 DC 06/15 Chloride IV 0551 Diphenhydramine HCl 25 MG Q6P PRN 06/12 2330 AC PO Heparin Sodium 7,150 UNIT ONCE ONE 06/16 0530 DC (Porcine) IV 06/16 0531 Heparin Sodium 25,000 UNIT Q24H 06/13 1230 AC 06/15 (Porcine) IV 1743 Sodium Chloride 500 ML Hydromorphone HCl 0.5 MG Q4P PRN 06/12 233 AC 06/15 IV 1305 Ondansetron HCl 4 MG Q6P PRN 06/13 1245 AC IV Senna/Docusate Sodium 1 TAB AT BEDTIME 06/13 2200 AC PO Last 24 Hrs of Lab/Ralph Results Last 24 Hrs of Labs/Mics: Laboratory Tests 06/16/16 0400: PT 14.2 H, INR 1.36 H 06/16/16 0400: Anion Gap 4 L, Estimated GFR > 60, BUN/Creatinine Ratio 26.7 H, APTT 55 H, CBC w Diff NO MAN DIFF REQ, RBC 3.82 L, MCV 92.0, MCH 26.9 L, RDW 32.7 H, MPV 7.3 L, Gran % 66.6, Lymphocytes % 20.4 L, Monocytes % 10.7 H, Eosinophils % 1.7, Basophils % 0.6, Absolute Granulocytes 3.3, Absolute Lymphocytes 1.0 L, Absolute Monocytes 0.5, Absolute Eosinophils 0.1, Absolute Basophils 0, PUBS MCHC 29.2 L 06/15/16 1635: Anion Gap 8, Estimated GFR > 60, BUN/Creatinine Ratio 38.3 H, APTT 64 H, CBC w Diff NO MAN DIFF REQ, RBC 3.98 L, MCV 92.7, MCH 27.0, RDW 32.9 H, MPV 7.5, Gran % 71.2, Lymphocytes % 17.7 L, Monocytes % 9.7 H, Eosinophils % 0.8, Basophils % 0.6, Absolute Granulocytes 3.7, Absolute Lymphocytes 0.9 L, Absolute Monocytes 0.5, Absolute Eosinophils 0, Absolute Basophils 0, PUBS MCHC 29.1 L Assessment/Plan Assessment: 55-year-old woman with past medical history of congestive heart failure, obstructive sleep apnea, pulmonary embolism and DVT status post IVC filter, morbid obesity, presented with abdominal pain and vomitting, reports no pain, fever. #Abdominal pain, 2/2 Acute cholecystitis Conservative management. No indication for surgery. -Continue with IV unasyn 3000 MG every 6 hours and switch to po augmentin at the time of discharge. -Continue with IV fluids with D5W half normal saline , given her history of congestive heart failure -Surgery on board, appreciate recomendations. -HIDA scan indicated likely acute cholecystitis. -echo done on April 2016 shows ejection fraction of 55-60%, -Zofran for nausea -Liver function test already improving so we will not monitor tomorrow -We will continue to monitor her CBC, BEP -If no surgery is indicated, will discharge the pt home w/ a recommendation to get an CT scan w/ po contrast within one week. -Sigmoid diverticulitis-likely a contained perforation. No enema could be given due to perforation. historyof DVT s/p IVC filter Eliquis 5mg po bid. HEMA resolved. #Hyperkalemia -resolved. #Diabetes mellitus -Continue insulin sliding scale monitor BS Problem List: 1. Presence of IVC filter 2. History of DVT (deep vein thrombosis) 3. Sigmoid diverticulitis 4. Acute kidney injury 5. Hyperkalemia 6. Abdominal pain Pain Ratin Pain Location: none Pain Goal: Pain 4 or less Pain Plan: tylenol Tomorrow's Labs & Rationales: none Consulting Request: Consulting Specialty: General Surgery Consulting Physician: JAY SMILEY,JOSE CARLOS N. Reason for Consult: acute abdomen, cholecystitis, microperforation diverticulitis MARGIE DARDEN MD 06/16/16 1055: Attending MD Review Statement Attending Statement Attending MD Statement: examined this patient, discuss w/resident/PA/SEAMLESS TUBE ROLLER, agreed w/resident/PA/SEAMLESS TUBE ROLLER, reviewed EMR data (avail) Attending Assessment/Plan: 55F PMH chronic diastolic CHF, XIANG, pulmonary embolism and DVT status post IVC filter, morbid obesity admitted with intractable RUQ pain with abdominal ultrasound showing acute cholecystitis. Afebrile, stable vitals, WBC 8, cultures NGTD. Eliquis being held and on heparin drip in case of surgery. Today patient's abdominal pain is improved and she is comfortable. Labs reviewed. After discussion with surgery, do not suspect active cholecystitis in this patient. Symptoms possibly secondary to diverticulitis with microperforation, but symptoms have resolved and patient is back to baseline, hemodynamically stable, and no signs of active infection. Plan - Stable for discharge - CT abdomen with PO contrast in 1 week - Outpatient surgery follow up - Continue Augmentin for additional 14 days - Discontinue heparin drip - Restart Eliquis - Continue home medications
[2016-06-16 08:44] VITALS: BP 100/60
--- NOTE | 2016-06-16 09:34 | Discharge Summary ---
Visit Information Visit Dates Admission Date: 06/12/16 Discharge Date: 06/16/16 Hospital Course Course Attending Physician: MARGIE DARDEN MD Primary Care Physician: CANDICE SMILEY,PEGGY Farley Consulting Request: Consulting Specialty: General Surgery Consulting Physician: JAY SMILEY,JOSE CARLOS Garcia Reason for Consult: acute abdomen, cholecystitis, microperforation diverticulitis Hospital Course: 55-year-old female with past medical history of Obesity, DVT-PE, XIANG noncompliant with CPAP, HFpEF admitted with complaints of Persistent abdominal pain and vomiting. Patient was seen in the ER 1 day prior to admission with right upper quadrant abdominal pain, CAT scan was done showed mild diverticulitis with a contained perforation and gallbladder stones. Surgery was consulted at that time and the patient was discharged. Patient came back again for nausea vomiting and persistent right upper quadrant pain. On admission Vitals: Afebrile, BP and low normal side without significant tachycardia, saturating well on 3 L Labs: Hemoglobin 11.4 WBC 7.5 but neutrophils 77%, potassium 5.8, CO2 33, creatinine 1.5, anion gap 11, lactate 1.0, LFT unremarkable. Lipase 43 Imaging: Right upper quadrant ultrasound was obtained which showed Cholelithiasis, gallbladder wall edema and trace pericholecystic fluid Hospital course 1. Right upper quadrant abdominal pain: Ultrasound of the abdomen was done, negative Mejia sign but ultrasound is suggest suspected cholecystitis, transaminitis and normal bilirubin. But patient does not have a fever, leukocytosis. Surgical consult was obtained who suggested that Overall she is not a good surgical candidate in part because of the Eliquis, there are many risks for morbidity and even mortality, for example including sleep apnea morbid obesity hyperkalemia, elevation and BUN/creatinine, might be dehydrated, so would prefer to optimize medically and try to firm up the diagnosis before considering intervention. Of note she was also afebrile without leukocytosis or tenderness over the gallbladder on the exam or by the ultrasound and she has been on antibiotics which goes against cholecystitis. She was continued to be monitored and her labs were followed. LFTs remained normal during her hospital stay. Has a decision was made that there is no need for cholecystectomy now are near future if she remains asymptomatic. 2. Sigmoid diverticulitis: Contained perforation associated with diverticulitis in descending to sigmoid colon. Patient was started on ceftriaxone and Flagyl which was later transitioned to Unasyn. Her oral anticoagulation was held and she was started on IV heparin in anticipation for procedure. Per surgery's recommendation, Since it was a contained perforation and patient doesn't have peritoneal signs or systemic symptoms of infection is no need for urgent surgery. She was kept nothing by mouth. Continued on IV antibiotics. She should be transitioned to by mouth antibiotics and complete a course for 14 more days until 06/30/2016. He was started on a clear diet which patient tolerated very well. She will need a repeat CAT scan of the abdomen with oral contrast to monitor extent of perforation/healing. 3. History of DVT/PE status post IVC filter: Patient is on Eliquis, which was held and she was maintained on IV heparin. On section back to [facility] upon discharge 4. History of congestive heart failure: Patient's blood pressure was running on the lower range so antihypertensive medications were not initially started. She was kept on CPAP during nighttime. She did not show signs of decompensation due to congestive heart failure during her stay. 5. A KI, resolved: Probably prerenal which improved with gentle hydration. 6. Hyperkalemia: Most likely due to acute kidney injury which is old as kidney functions normalized. 7. Diabetes mellitus: Her oral medications was held and patient was continued on a NovoLog sliding scale with fingersticks monitoring: DVT prophylaxis with IV heparin Full code status Since patient was admitted with microperforation/diverticulitis and she was kept nothing by mouth she did not have a bowel movement upon discharge to [facility]. Bowel stimulants were not given given her diagnosis of microperforation and this could potentially worsen her condition. Can be continued on stool softeners at her rehabilitation facility. Complications: none Allergies: Coded Allergies: NO KNOWN ALLERGIES (12/10/13) Significant Procedures: Laboratory Tests 06/16 06/16 0400 0400 Chemistry Sodium (137 - 145 mmol/L) 143 Potassium (3.5 - 5.1 mmol/L) 4.6 Chloride (98 - 107 mmol/L) 103 Carbon Dioxide (22 - 30 mmol/L) 35 H Anion Gap (5 - 16) 4 L BUN (7 - 17 mg/dL) 16 Creatinine (0.5 - 1.0 mg/dL) 0.6 Estimated GFR (>60 ml/min) > 60 BUN/Creatinine Ratio (7 - 25 %) 26.7 H Coagulation PT (9.4 - 12.5 SEC) 14.2 H INR (0.90 - 1.19) 1.36 H APTT (25 - 37 SEC) 55 H Hematology CBC w Diff NO MAN DIFF REQ WBC (4.8 - 10.8 /CUMM) 4.9 RBC (4.20 - 5.40 /CUMM) 3.82 L Hgb (12.0 - 16.0 G/DL) 10.3 L Hct (37 - 47 %) 35.1 L MCV (81.0 - 99.0 FL) 92.0 MCH (27.0 - 31.0 PG) 26.9 L RDW (11.5 - 14.5 %) 32.7 H Plt Count (130 - 400 /CUMM) 194 MPV (7.4 - 10.4 FL) 7.3 L Gran % (42.2 - 75.2 %) 66.6 Lymphocytes % (20.5 - 51.1 %) 20.4 L Monocytes % (1.7 - 9.3 %) 10.7 H Eosinophils % (0 - 5 %) 1.7 Basophils % (0.0 - 2.0 %) 0.6 Absolute Granulocytes (1.4 - 6.5 /CUMM) 3.3 Absolute Lymphocytes (1.2 - 3.4 /CUMM) 1.0 L Absolute Monocytes (0.10 - 0.60 /CUMM) 0.5 Absolute Eosinophils (0.0 - 0.7 /CUMM) 0.1 Absolute Basophils (0.0 - 0.2 /CUMM) 0 PUBS MCHC (33.0 - 37.0 G/DL) 29.2 L 06/15 06/15 06/14 1635 0110 1242 Chemistry Sodium (137 - 145 mmol/L) 142 Potassium (3.5 - 5.1 mmol/L) 4.9 Chloride (98 - 107 mmol/L) 102 Carbon Dioxide (22 - 30 mmol/L) 32 H Anion Gap (5 - 16) 8 BUN (7 - 17 mg/dL) 23 H Creatinine (0.5 - 1.0 mg/dL) 0.6 Estimated GFR (>60 ml/min) > 60 BUN/Creatinine Ratio (7 - 25 %) 38.3 H Coagulation APTT (25 - 37 SEC) 64 H 72 H 69 H Hematology CBC w Diff NO MAN DIFF REQ WBC (4.8 - 10.8 /CUMM) 5.1 RBC (4.20 - 5.40 /CUMM) 3.98 L Hgb (12.0 - 16.0 G/DL) 10.7 L Hct (37 - 47 %) 36.8 L MCV (81.0 - 99.0 FL) 92.7 MCH (27.0 - 31.0 PG) 27.0 RDW (11.5 - 14.5 %) 32.9 H Plt Count (130 - 400 /CUMM) 196 MPV (7.4 - 10.4 FL) 7.5 Gran % (42.2 - 75.2 %) 71.2 Lymphocytes % (20.5 - 51.1 %) 17.7 L Monocytes % (1.7 - 9.3 %) 9.7 H Eosinophils % (0 - 5 %) 0.8 Basophils % (0.0 - 2.0 %) 0.6 Absolute Granulocytes (1.4 - 6.5 /CUMM) 3.7 Absolute Lymphocytes (1.2 - 3.4 /CUMM) 0.9 L Absolute Monocytes (0.10 - 0.60 /CUMM) 0.5 Absolute Eosinophils (0.0 - 0.7 /CUMM) 0 Absolute Basophils (0.0 - 0.2 /CUMM) 0 PUBS MCHC (33.0 - 37.0 G/DL) 29.1 L 06/14 06/13 06/13 0530 2346 2250 Chemistry Sodium (137 - 145 mmol/L) 143 Potassium (3.5 - 5.1 mmol/L) 5.2 H 5.0 Chloride (98 - 107 mmol/L) 98 Carbon Dioxide (22 - 30 mmol/L) 34 H Anion Gap (5 - 16) 12 BUN (7 - 17 mg/dL) 29 H Creatinine (0.5 - 1.0 mg/dL) 1.1 H Estimated GFR (>60 ml/min) 51 L BUN/Creatinine Ratio (7 - 25 %) 26.4 H Total Bilirubin (0.2 - 1.3 mg/dL) 0.4 Direct Bilirubin (< 0.4 mg/dL) 0.4 AST (14 - 36 U/L) 18 ALT (9 - 52 U/L) 26 Alkaline Phosphatase (<127 U/L) 75 Total Protein (6.3 - 8.2 g/dL) 7.6 Albumin (3.5 - 5.0 g/dL) 3.2 L Coagulation APTT (25 - 37 SEC) 95 H Cancelled 31 Hematology CBC w Diff NO MAN DIFF REQ WBC (4.8 - 10.8 /CUMM) 8.1 RBC (4.20 - 5.40 /CUMM) 3.96 L Hgb (12.0 - 16.0 G/DL) 10.6 L Hct (37 - 47 %) 36.8 L MCV (81.0 - 99.0 FL) 93.0 MCH (27.0 - 31.0 PG) 26.8 L RDW (11.5 - 14.5 %) 33.2 H Plt Count (130 - 400 /CUMM) 213 MPV (7.4 - 10.4 FL) 7.4 Gran % (42.2 - 75.2 %) 77.1 H Lymphocytes % (20.5 - 51.1 %) 14.7 L Monocytes % (1.7 - 9.3 %) 7.6 Eosinophils % (0 - 5 %) 0.4 Basophils % (0.0 - 2.0 %) 0.2 Absolute Granulocytes (1.4 - 6.5 /CUMM) 6.2 Absolute Lymphocytes (1.2 - 3.4 /CUMM) 1.2 Absolute Monocytes (0.10 - 0.60 /CUMM) 0.6 Absolute Eosinophils (0.0 - 0.7 /CUMM) 0 Absolute Basophils (0.0 - 0.2 /CUMM) 0 PUBS MCHC (33.0 - 37.0 G/DL) 28.9 L Disposition Summary Disposition Principal Diagnosis: 1. Sigmoid diverticulitis Additional Diagnosis: History of DVT/PE/status post IVC filter History of congestive heart failure Acute kidney injury resolved Hyperkalemia Diabetes mellitus Discharge Disposition: STr Discharge Instructions General Discharge Information Code Status: Full Code Patient's Diet: Diabetic diet Patient's Activity: As tolerated Follow-Up Instructions/Appts: Please visit your primary care physician within 7-10 days of discharge. Please follow up with your surgeon within one week of discharge. Please get a CT scan abdomen with PO contrast on 06/23/15. Please copy results to the PCP and the surgeon. Continue antibiotics for a total course of 2 more weeks until 06/30/2016 Medications at Discharge Discharge Medications: Continue taking these medications: Acetaminophen (Tylenol Tab 325 MG) 325 MG TAB 2 Tablet ORAL EVERY 4 HOURS NEEDED as needed for mild to moderate pain Qty = 30 Comments: Last Taken: 12/14/13 Time: 5:00 PM Albuterol (Proventil) 0.09 MG/Actuation ESCOBAR 2 PUFF Inhale through mouth EVERY SIX HOURS as needed for WHEEZING Qty = 1 Ferrous Sulfate (Ferrous Sulfate) 325 MG TAB 1 Tablet ORAL TWICE DAILY Qty = 30 Docusate Sodium (Colace) 100 MG SGL 2 Capsule ORAL DAILY Qty = 30 Acetazolamide (Acetazolamide) 250 MG TABLET 1 Tablet ORAL WEDNESDAY, WEDNESDAY AND WEDNESDAY Qty = 20 Instructions: Please take this medication on Wednesday, Wednesday, Wednesday. Comments: NOT GIVEN IN HOSPITAL Furosemide (Lasix) 40 MG TABLET 1 Tablet ORAL Wed Qty = 30 Instructions: Please take this medication on Wednesday, , Wednesday and Wednesday. Comments: NOT GIVEN IN HOSPITAL Ergocalciferol (Vitamin D2) (Vitamin D2) 50,000 UNIT CAPSULE 1 Capsule ORAL As Directed Comments: Wed NOT GIVEN IN HOSPITAL Apixaban (Eliquis) 2.5 MG TABLET 1 Tablet ORAL TWICE DAILY Qty = 40 Instructions: The dose of eliquis has been changed to 5mg po bid. Please talk to your pcp for any dose adjustments. Comments: NOT GIVEN IN HOSPITAL This prescription has been renewed Start taking the following new medications: Ondansetron (Zofran Odt) 4 MG TAB.RAPDIS 1 Tablet SUBLINGUAL THREE TIMES DAILY as needed for nausea, vomitting Qty = 10 No Refills Comments: NOT GIVEN IN HOSPITAL Amoxicillin/Potassium Clav (Augmentin 875-125 Tablet) 875 MG-125 MG TABLET 1 Tablet ORAL TWICE DAILY Days = 14 No Refills Comments: NOT GIVEN IN HOSPITAL Apixaban (Eliquis) 5 MG TABLET 1 Tablet ORAL TWICE DAILY Qty = 60 No Refills Comments: Last Taken: 06/16/16 Time: 1300 Copies To: CANDICE SMILEY,PEGGY Farley; JAY SMILEY,JOSE CARLOS Garcia
[2016-06-16] MEDS ORDERED: AUGMENTIN 875-1 EACH PO (10:54)
[2016-06-16] MEDS ORDERED: ELIQUIS5 M1 PO (11:26)
[2016-06-16] MEDS ORDERED: ELIQUIS2.5 M1 PO (11:28)
== END 2016-06-16 14:38 | DRG 392 ==
LOC: CANRESERV → ENRESERVTM → ENRESERVDT → ERH 14:08 → ENPENDDIS 22:58 → ERHI 22:58 → 2NB 22:58 → CANBEDREQ 06-13 01:08 → 2NB 06-13 02:25
PROVIDERS: Internal Medicine; Physician Assistant Medical; Radiology Diagnostic Radiology; ADMIT Internal Medicine
DX: K57.20 Diverticulitis of large intestine with perforation and abscess without bleeding (principal); N17.9 Acute kidney failure, unspecified; I50.32 Chronic diastolic (congestive) heart failure; K80.10 Calculus of gallbladder with chronic cholecystitis without obstruction; Z68.42 Body mass index [BMI] 45.0-49.9, adult; E87.5 Hyperkalemia; E11.9 Type 2 diabetes mellitus without complications; E66.01 Morbid (severe) obesity due to excess calories; G47.33 Obstructive sleep apnea (adult) (pediatric); Z86.711 Personal history of pulmonary embolism; Z86.718 Personal history of other venous thrombosis and embolism
CPT/HCPCS: 2NBSP; 84133; 84300; ERO; 36415; 78226; 82436; 82570; 87040; 93005; 93010; 96374; 96375; 97110-GO; 97116-GO; 97162-GP; 97530-GO; A9537; J0696; J1644; J1815; J2405; J7042